=== PATIENT | male | born 1945 | race Caucasian/White ===

== ENCOUNTER 2019-12-04 18:13 | Inpatient (IN) | payer OTHER, SELFPAY ==
[~2019-12-04] VITALS: Ht 172.7 cm; Wt 95.3 kg
--- NOTE | 2019-12-04 18:13 | NUR ---
[facility] ER BED 07
[2019-12-04] MEDS ORDERED: NACL 0.9% 1,000 ML IV ONE ×2 (18:19→21:15)
[2019-12-04 18:35] VITALS: BP 87/56
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
[2019-12-04] MEDS ORDERED: cefTRIAXone 1,000 MG VIAL ONE (18:41)
[2019-12-04 19:23] LABS: BASOPHILS % (AUTO) 0.6 % (0.0-2.0); EOSINOPHILS # (AUTO) 0.1 K/uL (0-0.4); EOSINOPHILS % (AUTO) 1.2 % (0.0-4.0); HEMATOCRIT 37.7 % (36-52); HEMOGLOBIN 12.7 g/dL (12.0-18.0); LYMPHOCYTES # (AUTO) 0.6 K/uL (2.0-11.5); LYMPHOCYTES % (AUTO) 8.1 % (20.5-51.1); MEAN CORPUSCULAR HEMOGLOBIN 32 pg (27-31); MEAN CORPUSCULAR HGB CONC 34 g/dL (33-37); MEAN CORPUSCULAR VOLUME 95.6 fL (80-94); MONOCYTES # (AUTO) 0.8 K/uL (0.8-1.0); MONOCYTES % (AUTO) 11.6 % (1.7-9.3); NEUTROPHILS # (AUTO) 5.7 K/uL (1.8-7.7); NEUTROPHILS % (AUTO) 78.5 % (42.2-75.2); PLATELET COUNT (AUTO) 189 K/uL (140-450); RED BLOOD CELL COUNT(AUTO) 3.95 MIL/uL (4.20-6.10); RED CELL DISTRIBUTION WIDTH 13.9 % (11.6-13.7); WHITE BLOOD COUNT (AUTO) 7.3 K/uL (4.8-10.8)
--- NOTE | 2019-12-04 19:41 | NUR ---
Pt report received from JONAH Roldan. Transfer of care at this time.
[2019-12-04 19:44] LABS: ALBUMIN 3.2 g/dL (3.4-5.0); ANION GAP 14.3 (8-16); ASPARTATE AMINOTRANSFERASE 85 U/L (15-37); CARBON DIOXIDE 27.5 mmol/L (21-32); CHLORIDE 104 mmol/L (98-107); CREATININE 1.6 mg/dL (0.6-1.3); GLUCOSE 117 mg/dL (74-106); POTASSIUM 3.8 mmol/L (3.5-5.1); SODIUM SERUM 142 mmol/L (136-145); TOTAL BILIRUBIN 0.3 mg/dL (0.0-1.0); UREA NITROGEN, BLOOD 24 mg/dL (7-18)
--- NOTE | 2019-12-04 20:36 | NUR ---
PT RESTING IN BED QUIETLY, VSS, BP HAS INCREASED TO 135/63. R/R EQUAL, AND UNLABORED. PT STATES HE CANNOT GIVE URINE AT THIS TIME, AND IS REFUSING A STRAIGHT CATH. SIDE RAIL X2, BED IN LOW POSITION WILL CONTINUE TO MONITOR.
--- NOTE | 2019-12-04 21:15 | NUR ---
1L NS @ 50ML/HR STARTED PER ORDERING PROVIDER DR. LEMUS
[2019-12-04] MEDS ORDERED: DIVA125E1 PO (23:46)
[2019-12-04] MEDS ORDERED: COG1 PO (23:46)
[2019-12-04] MEDS ORDERED: AMLO5TAB PO (23:46)
[2019-12-04] MEDS ORDERED: RISP0.5T3 PO (23:46)
--- NOTE | 2019-12-04 23:50 | NUR ---
PT REMOVED IV'S FROM RAC, AND LEFT HAND. "I DON'T NEED THEM, WHY ARE YOU HURTING ME, I'M READY TO GO BACK TO MY ALF."
--- NOTE | 2019-12-05 00:19 | NUR ---
20G RIGHT HAND IV PLACED BY JONAH HORN. IVF RESTARTED AT NS 50ML/HR.
--- NOTE | 2019-12-05 00:20 | NUR ---
PT GIVEN A ANUJ ALEXANDER PER PT REQUEST.
--- NOTE | 2019-12-05 00:30 | NUR ---
PT WAS ASKED AGAIN FOR URINE, PT REFUSED STATING "STOP HARRASSING ME, I'M NOT GIVING IT." PT CONTINUES TO REFUSE STRAIGHT CATH REQUEST FOR URINE. ERMD MADE AWARE.
--- NOTE | 2019-12-05 01:24 | NUR ---
PT RESTING IN BED QUIETLY, VSS. R/R EQUAL, AND UNLABORED. PT STATES HE CANNOT GIVE URINE AT THIS TIME, AND IS REFUSING A STRAIGHT CATH. SIDE RAIL X2, BED IN LOW POSITION WILL CONTINUE TO MONITOR.
--- NOTE | 2019-12-05 02:46 | NUR ---
PT APPEARS TO BE SLEEPING IN BED. VSS, R/R EQUAL, AND UNLABORED. SIDE RAIL X2, BED IN LOW POSITION WILL CONTINUE TO MONITOR.
--- NOTE | 2019-12-05 04:25 | NUR ---
PT RESTING IN BED QUIETLY, VSS. R/R EQUAL, AND UNLABORED. PT STATES HE NEEDS THE URINAL TO URINATE. VSS, SIDE RAIL X2, BED IN LOW POSITION WILL CONTINUE TO MONITOR.
--- NOTE | 2019-12-05 04:32 | NUR ---
PT STATES HE'S UNABLE TO URINATE AT THIS TIME, WILL TRY AGAIN LATER.
--- NOTE | 2019-12-05 05:43 | NUR ---
PT APPEARS TO BE SLEEPING IN BED. VSS, R/R EQUAL, AND UNLABORED. SIDE RAIL X2, BED IN LOW POSITION WILL CONTINUE TO MONITOR.
[2019-12-05] MEDS ORDERED: ACETAMINOPHEN 325 MG TAB PO PRN (06:55)
[2019-12-05] MEDS ORDERED: guaiFENesin DM 200/20 MG-10 ML 10 ML UDC PO PRN (06:55)
[2019-12-05] MEDS ORDERED: ONDANSETRON 4 MG/2 ML VIAL IM/IVP PRN (06:55)
[2019-12-05] MEDS ORDERED: DEXT 5% /NACL 0.9% 1,000 ML IV SCH (06:55)
[2019-12-05] MEDS ORDERED: DOCUSATE SODIUM 100 MG GELCAP PO PRN (06:55)
[2019-12-05] MEDS ORDERED: POTASSIUM CHLORIDE 40 MEQ, LIDOCAINE MPF 1% 25 MG in NACL 0.9% 250 ML IV PRN (06:55)
[2019-12-05] MEDS ORDERED: ZOLPIDEM 5 MG TAB PO PRN (06:55)
--- NOTE | 2019-12-05 07:00 | NUR ---
PT GAVE URINE. PLACED INTO APPROPRIATE SPECIMEN CONTAINER AND GIVEN TO LAB
--- NOTE | 2019-12-05 07:11 | NUR ---
Pt report given to JONAH DIAMOND. Transfer of care at this time.
--- NOTE | 2019-12-05 07:15 | NUR ---
pt alert to self, birthday, and event cant recall date/time
[2019-12-05 07:22] LABS: BASOPHILS % (AUTO) 0.4 % (0.0-2.0); EOSINOPHILS % (AUTO) 0.8 % (0.0-4.0); HEMATOCRIT 33.3 % (36-52); HEMOGLOBIN 11.4 g/dL (12.0-18.0); LYMPHOCYTES # (AUTO) 1.2 K/uL (2.0-11.5); LYMPHOCYTES % (AUTO) 22.6 % (20.5-51.1); MEAN CORPUSCULAR HEMOGLOBIN 32 pg (27-31); MEAN CORPUSCULAR HGB CONC 34 g/dL (33-37); MEAN CORPUSCULAR VOLUME 95.1 fL (80-94); MONOCYTES % (AUTO) 19.9 % (1.7-9.3); NEUTROPHILS % (AUTO) 56.3 % (42.2-75.2); PLATELET COUNT (AUTO) 165 K/uL (140-450); RED CELL DISTRIBUTION WIDTH 13.6 % (11.6-13.7); WHITE BLOOD COUNT (AUTO) 5.3 K/uL (4.8-10.8)
[2019-12-05 07:30] LABS: BILIRUBIN,URINE NEGATIVE (NEGATIVE); BLOOD, URINE NEGATIVE (NEGATIVE); COLOR,URINE YELLOW (YELLOW); LEUKOCYTE ESTERASE ,URINE NEGATIVE (NEGATIVE); NITRITE, URINE NEGATIVE (NEGATIVE); UGLUCOSE NEGATIVE (NEGATIVE)
--- NOTE | 2019-12-05 07:41 | NUR ---
covid swab collected
[2019-12-05 07:45] LABS: APPEARANCE,URINE CLEAR (CLEAR)
[2019-12-05 08:09] LABS: ALBUMIN 2.7 g/dL (3.4-5.0); AMYLASE 42 U/L (25-115); ANION GAP 12.7 (8-16); ASPARTATE AMINOTRANSFERASE 61 U/L (15-37); CHLORIDE 107 mmol/L (98-107); CHOL/HDL RATIO 4.2 (1-4.5); CREATININE 1.3 mg/dL (0.6-1.3); FREE T4 (FREE THYROXINE) 1.07 ng/dL (0.76-1.46); GLUCOSE 97 mg/dL (74-106); HDL CHOLESTEROL 43 mg/dL (40-60); LDL (CALC) 117 mg/dL (60-100); LIPASE 146 U/L (73-393); MAGNESIUM 1.6 mg/dL (1.8-2.4); POTASSIUM 3.7 mmol/L (3.5-5.1); SODIUM SERUM 142 mmol/L (136-145); THYROID STIMULATING HORMONE 2.81 uIU/mL (0.34-3.74); TOTAL BILIRUBIN 0.2 mg/dL (0.0-1.0); TRIGLYCERIDES 98 mg/dL (30-150); UREA NITROGEN, BLOOD 25 mg/dL (7-18)
[2019-12-05 08:17] LABS: PROTHROMBIN TIME 10.3 secs (10.8-13.4)
--- NOTE | 2019-12-05 08:33 | NUR ---
pts bs 98, pt eating breakfeast in bed-cardiac diet
[2019-12-05] MEDS: DIVALPROEX SPRINKLES 125 MG CAPDR PO SCH ×2 (08:46→20:55)
[2019-12-05] MEDS: NACL 0.9% 1,000 ML IV SCH ×2 (08:46→17:06)
--- NOTE | 2019-12-05 08:50 | NUR ---
depakote administerd. pt tolerated well. nacl infusing into pts r hand peripheral iv.
[2019-12-05 09:10] VITALS: BP 130/81
--- NOTE | 2019-12-05 09:10 | NUR ---
RECEIVED PATIENT FROM ED NURSE FOR ADMISSION AND CONTINUITY OF CARE. PATIENT IS AWAKE, SLOVENIAN SPEAKING. RESPIRATIONS EVEN AND UNLABORED, ROOM AIR. VISIBLE CHEST RISE AND FALL NOTED. ON TELE MONITORING. ABDOMEN SOFT AND NONTENDER. ON CARDIAC DIET. CUP OF COFFEE ON HAND. SKIN WARM, DRY, AND INTACT. IV IN THE RIGHT HAND G20, RUNNING NS AT 115 ML/HR. IVF INFUSING WELL. PATIENT WAS ABLE TO TRANSFER SELF FROM RNEY TO THE BED. HAS DIAPER ON.USES URINAL PER ED NURSE. FALL PRECAUTION IN PLACE. BED IN LOW POSITION. ORIENTED TO THE ROOM AND CALL LIGHT. TV IS ON. WILL CONTINUE TO MONITOR.
--- NOTE | 2019-12-05 09:10 | NUR ---
Patient will be admitted to care of dr cooper. Admited to tele. Will go to room 119a. Belongings list completed. Report to princess raygoza.
--- NOTE | 2019-12-05 09:10 | NUR ---
RECEIVED PT FROM ER NURSE. PT A/OX3. ADM 12/04/19 FOR HYPOTENSIVE EPISODE. RESPIRATIONS EVEN AND UNLABORED. ON ROOM AIR. 20G IV ON R HAND WITH NS @115ML/HR. SKIN CLEAN, DRY AND INTACT. BP 130/60. HR 80. RR 18. SAO2 98%. TEMP 98.2. MRSA SWAB COMPLETED. SAFETY PRECAUTIONS IN PLACE. BED IN LOW POSITION, CALL LIGHT IN REACH. WILL CONTINUE TO MONITOR.
[2019-12-05] MEDS ORDERED: MECLIZINE 25 MG TAB PO PRN (09:20)
--- NOTE | 2019-12-05 09:58 | NUR ---
PHYSICAL THERAPIST AT BEDSIDE. Addendum: 12/05/19 at 1013 by Princess Trini Ragland RN WALKED PATIENT TO THE BATHROOM WITH A WALKER. UNSTEADY GAIT. HAD ON BM.
--- NOTE | 2019-12-05 10:03 | NUR ---
CELESTINO FROM LAB CALLED. SHE STATED THAT PATIENT REFUSED BLOOD TO BE DRAWN. PATIENT STATED " NO MORE BLOOD, NO MORE BLOOD". WILL NOTIFY DR. MELISSA.
[2019-12-05] MEDS: MAGNESIUM OXIDE 400 MG TAB PO SCH (10:12)
--- NOTE | 2019-12-05 11:05 | NUR ---
PATIENT IS RESTING IN BED WATCHING TV. O2SAT 97%, HR 84. BED IN LOW POSITION. CALL LIGHT IS WITHIN REACH. FALL AND DROPLET PRECAUTIONS ARE BEING FOLLOWED BY STAFF. WILL CONTINUE TO MONITOR.
--- NOTE | 2019-12-05 11:11 | NUR ---
INFORMED DR. MELISSA THAT PATIENT HAS HX OF DM BUT NO ACCUCHECKS OR SLIDING SCALE. HE STATED HE WILL PUT ORDERS.
--- NOTE | 2019-12-05 11:43 | NUR ---
PATIENT HAS BEEN SCREENED AND CATEGORIZED MODERATE NUTRITION RISK. PATIENT WILL BE SEEN WITHIN 3-5 DAYS OF ADMISSION. 12/07/19 12/09/[address]
[2019-12-05] MEDS ORDERED: INSULIN LISPRO SLIDING SCALE 100 UNITS/ML VIAL SUBQ PRN (11:55)
[2019-12-05] MEDS ORDERED: DEXTROSE 50% 50 ML SYR IVP PRN (11:55)
[2019-12-05 12:00] VITALS: BP 117/59
--- NOTE | 2019-12-05 12:14 | NUR ---
GIVEN MAG-OX PO FOR MG OF 1.6. PT TOLERATED WELL. NO ACUTE DISTRESS NOTED. WILL CONTINUE TO MONITOR Addendum: 12/05/19 at 1216 by Herber Banerjee RN GIVEN AT 1012
--- NOTE | 2019-12-05 13:13 | NUR ---
PATIENT IS EATING LUNCH AT THIS TIME. NO S/S OF DISTRESS NOTED. BED IN LOW POSITION. CALL LIGHT IS WITHIN REACH. WILL CONTINUE TO MONITOR.
--- NOTE | 2019-12-05 14:34 | NUR ---
MADE ROUNDS. PT SITTING IN BED, WATCHING TV. NO ACUTE DISTRESS NOTED. WILL CONTINUE TO MONITOR.
--- NOTE | 2019-12-05 14:40 | NUR ---
PT TAKEN TO CT.
--- NOTE | 2019-12-05 14:55 | NUR ---
PT ARRIVED BACK TO UNIT
--- NOTE | 2019-12-05 15:49 | NUR ---
TURKEY SANDWICH GIVEN PER PATIENT'S REQUEST. NO S/S OF DISTRESS NOTED. O2SAT 96%, HR 81. DENIES SOB, AND PAIN
[2019-12-05] MEDS: BLOOD GLUCOSE MONITORING 1 DEV DEV FS SCH ×2 (15:59→21:00)
[2019-12-05 16:12] VITALS: BP 125/59
--- NOTE | 2019-12-05 17:08 | NUR ---
MADE ROUNDS. PT SITTING IN BED WATCHING TV. NO ACUTE DISTRESS NOTED.
--- NOTE | 2019-12-05 18:20 | NUR ---
HUNG NEW IV BAG OF NS.
--- NOTE | 2019-12-05 19:10 | NUR ---
ENDORSED PT TO NIGHT RN FOR CONTINUITY OF CARE. PT IN STABLE CONDITION.
--- NOTE | 2019-12-05 19:23 | NUR ---
RECEIVED REPORT FROM AM NURSE. PATIENT IS IN STABLE CONDITION, ON RA, A/OX 4. SKIN WARM, DRY, INTACT. IV SITE NOTED, PATENT, INTACT, AND ASYMPTOMATIC. PATIENT IS ABLE TO MAKE NEEDS KNOWN. ORIENTED PATIENT TO STAFF AND CALL LIGHT. ALL STAFF TO OBSERVE ISOLATION PRECAUTION. SAFETY PRECAUTIONS IN PLACE. WILL CONTINUE TO MONITOR.
[2019-12-05] MEDS: BENZTROPINE 1 MG TAB PO SCH (20:55)
[2019-12-05] MEDS: risperiDONE 1 MG TAB PO SCH (20:56)
--- NOTE | 2019-12-05 21:16 | NUR ---
ADMINISTERED SCHEDULED MEDICATION. PATIENT REFUSED FINGERSTICK BLOOD SUGAR CHECK. EDUCATION PROVIDED. PER REFLOW OPERATOR, PATIENT REFUSED 1999 VITAL SIGNS CHECK. PATIENT IS IN STABLE CONDITION. WILL CONTINUE TO MONITOR.
--- NOTE | 2019-12-05 23:01 | NUR ---
PATIENT IS SLEEPING IN BED. VISIBLE CHEST RISE NOTED. WILL CONTINUE TO MONITOR.
[2019-12-06] VITALS: BP 119/75
--- NOTE | 2019-12-06 01:37 | NUR ---
PATIENT IS SLEEPING. VISIBLE CHEST RISE NOTED. SAFETY PRECAUTIONS IN PLACE. WILL CONTINUE TO MONITOR.
[2019-12-06] MEDS: NACL 0.9% 1,000 ML IV SCH ×3 (01:59→19:23)
--- NOTE | 2019-12-06 03:15 | NUR ---
PATIENT IS SLEEPING. VISIBLE CHEST RISE NOTED. WILL CONTINUE TO MONITOR.
[2019-12-06 04:00] VITALS: BP 137/74
--- NOTE | 2019-12-06 05:04 | NUR ---
SERVICE TRAINER AT BEDSIDE HELPING WITH CHANGING THE PATIENT. PATIENT IS IN STABLE CONDITION. WILL CONTINUE TO MONITOR.
[2019-12-06] MEDS: BLOOD GLUCOSE MONITORING 1 DEV DEV FS SCH ×4 (07:16→20:08)
--- NOTE | 2019-12-06 07:16 | NUR ---
PATIENT REFUSED FINGERSTICK BLOOD SUGAR CHECK. EDUCATION GIVEN. ENDORSED CARE TO AM NURSE.
--- NOTE | 2019-12-06 07:20 | NUR ---
RECEIVED REPORT FROM PM RN. C/O: HYPOTENSION, ALOC. DX: SEVERE DEHYDRATION, HYPOTENSION, MILAGROS. R/O COVID19. HX: DM, HERB, SCHIZOPHRENIA, MOOD DISORDER, PARKINSON. NSR. IV: RT HAND 20G NS 115MLS. CARDIAC DIET. SKIN IS INTACT. PT REFUSED AM GLUCOSE CHECKS, ACCORDING TO PM RN. PT USES A URINAL. PLAN: FREQUENT ROUNDS, NOTIFY MD ON REFUSALS.
[2019-12-06 08:00] VITALS: BP 128/67
[2019-12-06 08:07] LABS: T4 (THYROXINE) 7.4 ug/dL (4.5-12.0)
--- NOTE | 2019-12-06 08:45 | NUR ---
PASSED PTS MEDICATIONS. PT HAD 6/10 BACK PAIN. PT WAS MEDICATED. HELPED PT TO RESTROOM. PT HAD BM. RETURNED PT TO BED. CHANGED LINENS. IV IS PATENT. PT RESTING IN BED AWAKE. WILL CONTINUE TO MONITOR
[2019-12-06] MEDS: DIVALPROEX SPRINKLES 125 MG CAPDR PO SCH ×2 (08:58→20:09)
[2019-12-06] MEDS: HYDROcodone/APAP 7.5/325 MG 1 TAB PO PRN ×2 (08:58→16:09)
[2019-12-06] MEDS: MAGNESIUM OXIDE 400 MG TAB PO SCH ×2 (08:58→09:00)
--- NOTE | 2019-12-06 10:44 | NUR ---
DC PLANN[age] YRS OLD MALE PATIENT WAS ADMITTED FROM HOME WITH A DX OF HYPOTENSIVE EPISODE, SEVER DHN AND MILAGROS . CXR SHOWED INCOMPLETE EXPANDED LUNGS WITH BIBASILAR ATELECTASIS. CT HEAD SHOWED NO INTRACRANIAL HEMORRHAGE. ADMINISTERED IVF FOR DEHYDRATION. COVID TEST IS POSITIVE. STARTED RAMDISIVIR IV DECADRON . CONSULTED WITH JL AND [facility]. DC PLAN TO GO HOME WHEN STABLE CM TO FOLLOW Addendum: 12/09/19 at 1212 by Radha Pinto CM REACHED OUT TO SUNITHA FROM [facility], SHE WAS ABLE TO PROVIDE ME WITH THE TELEPHONE NUMBER FOR [facility] [phone]. [id number] [place], [place]. REACHED OUT AND SPOKE TO ASHANTI TO VERIFY THIS PATIENT IS FROM THEM. Addendum: 12/09/19 at 1251 by Radha Pinto CM SPOKE TO ASHANTI FROM [facility] TO NOTIFY HER THAT PATIENT IS COVID POSITIVE SHE STATED THAT SHE WILL HAVE TO CALL ME BACK. THEY CAN NOT PROVIDE TRANSPORTATION WILL SET UP TRANSPORTATION WITH [facility] Addendum: 12/09/19 at 1308 by Radha Pinto CM ASHANTI FROM [facility] STATED THAT PATIENT CAN RETURN BUT SHE WANTED TO SPEAK TO THE PATIENTS NURSE. TRANSFERRED CALL TO JONAH STONE. FAXED TRANSPORTATION REQUEST TO [facility] [phone]. Addendum: 12/09/19 at 1416 by Radha Pinto CM TRANSPORTATION HAS BEEN SET UP WITH [facility] WITH OXYGEN 2L. NOTIFIED JOANH STONE THAT TRANSPORTATION WILL BE HERE AT 4:00 PM Addendum: 12/09/19 at 1422 by Radha Kaisereda CM VERIFIED WITH ARMANDO AT [facility] TRANSPORTATION THAT TRANSPORTATION HAS BEEN SET UP WITH 02 Addendum: 12/09/19 at 1521 by Radha Mayeda CM RECEIVED A CALL BACK FROM [facility] IN ADMIN [phone] SHE ASKED US TO HOLD OFF ON THE DISCHARGE BECAUSE THEY CAN NOT TAKE THE PATIENT BACK AT THIS TIME SINCE THE PATIENT IS COVID POSITIVE. Addendum: 12/09/19 at 1540 by Radha Mayeda CM CONTACTED [facility] TO CANCEL TRANSPORTATION. NOTIFIED JONAH STONE Addendum: 12/09/19 at 1622 by Radha Pinto CM FAXED PATIENTS CLINICALS TO [facility] [phone] FAX [phone]. FOLLOWED UP WITH SONNY SHE IS ABLE TO ACCEPT THIS PATIENT. ROOM [address] LIN[address] DENNIS FROM [facility] IS SETTING UP TRANSPORTATION WITH [facility] AND WILL CONTACT ME WITH JAMES. WILL PROVIDE HER WITH THE FLOORS NUMBER IN CASE I AM OFF. Addendum: 12/09/19 at 1623 by Radha Pinto CM PERSONAL FITNESS TRAINER TIME FOR PATIENT 7:00 PM. NOTIFIED JONAH STONE
--- NOTE | 2019-12-06 11:35 | NUR ---
PTS BLOOD SUGAR 123. NO INULIN NEEDED. PTS VITALS ARE WITHIN NORMAL RANGE. NO COMPLAINTS OF PAIN.
[2019-12-06 12:00] VITALS: BP 104/55
--- NOTE | 2019-12-06 13:00 | NUR ---
PT SITTING UP IN BED EATING LUNCH. NO COMPLAINTS OF PAIN. NO SIGNS OF DISTRESS.
--- NOTE | 2019-12-06 13:46 | NUR ---
COVERING FOR PRIMARY RN. PATIENT AWAKE ON HIS CELL PHONE
--- NOTE | 2019-12-06 15:03 | NUR ---
LAB CALLED, PT IS COVID 19 +.
--- NOTE | 2019-12-06 15:25 | NUR ---
PT TESTED POSITIVE FOR COVID19, PHYSICIAN NOTIFIED. WAITING FOR FURTHER ORDERS.
--- NOTE | 2019-12-06 15:48 | NUR ---
PLACED CONSULT FOR DR. ALEX AND DR. SNYDER PER DR. MELISSA.
[2019-12-06 16:00] VITALS: BP 126/67
--- NOTE | 2019-12-06 16:16 | NUR ---
BLOOD SUGAR 95. PT WAS IN PAIN. 10/01. PAIN MED GIVEN.
--- NOTE | 2019-12-06 19:20 | NUR ---
TRANSFER OF CARE TO PM RN. PT IS STABLE. NO SIGNS OF DISTRESS. VS STABLE.
--- NOTE | 2019-12-06 19:30 | NUR ---
RECEIVED REPORT FROM RN GERRY AT BEDSIDE FOR CONTINUITY OF CARE, PT IN STABLE CONDITION.
[2019-12-06 20:00] VITALS: BP 132/86
[2019-12-06] MEDS: BENZTROPINE 1 MG TAB PO SCH (20:09)
[2019-12-06] MEDS: risperiDONE 1 MG TAB PO SCH (20:09)
--- NOTE | 2019-12-06 20:25 | NUR ---
PT IS AOX3 ALERT AND AWAKE WITH NO C/O VOICED. PT FINGERSTICK IS 100, NO HUMALOG COVERAGE NEEDED. PT GIVEN ORDERED COGENTIN, DEPAKOTE SPRINKLES AND RISPERDAL AT BEDSIDE ORDERED. EDUCATION REGARDING MEDICATION PURPOSES AND SIDE EFFECTS PROVIDED AT BEDSIDE. PT VERBALIZED UNDERSTANDING. PT SAID HE WANTED TO GO TO BED. PT PLACED ON 2 LITERS VIA N/C DUE TO 02 DROPPING TO 79% AND GOING BACK TO 90'S THEN DROPPING AGAIN. EDUCATION PROVIDED SUPPLEMENTAL O2 PROVIDED AT BEDSIDE. PULSE OX WAS LOOSE ON INDEX FINGER. ALL REQUESTS ATTENDED BY STAFF. ALL DROPLET AND FALLS PRECAUTIONS IN PLACE.
--- NOTE | 2019-12-06 22:45 | NUR ---
PT IN BED RESTING WITH EYES CLOSED BUT AROUSABLE TO NAME . PT HAS 2 LITERS 02 VIA N/C 02 STATING AT 95%. NO S/S OF PAIN OR DISTRESS NOTED. IV SITE INTACT AND RUNNING NORMAL SALINE AT 115 ORDERED VIA R HAND 20 GUAGE. ALL DROPLET AND FALLS PRECAUTIONS IN PLACE.
[2019-12-07] VITALS: BP 134/83
--- NOTE | 2019-12-07 00:30 | NUR ---
PT IN BED WITH EYES CLOSED, BUT AROUSABLE TO NAME AND LIGHT TOUCH. PT HAS 2 LITERS VIA N/C. PT HAS R HAND 20 GUAGE RUNNING NORMAL SALINE AT 115MLS/HR . NEW BAG OF NORMAL SALINE REPLACED.IV SITE ASYMPTOMATIC AND INTACT. V/S FOLLOWS: T 98.1 P 84 R 18 B/P 134/83 02 97% WITH 2 LITERS VIA N/C. ALL ORDERED PRECAUTIONS IN PLACE.
[2019-12-07] MEDS: BLOOD GLUCOSE MONITORING 1 DEV DEV FS SCH ×5 (01:13→21:49)
[2019-12-07 04:00] VITALS: BP 127/70
[2019-12-07] MEDS: NACL 0.9% 1,000 ML IV SCH ×3 (04:05→21:29)
--- NOTE | 2019-12-07 04:30 | NUR ---
PT IN BED EYES CLOSED, BUT IS AROUSABLE TO NAME AND LIGHT TOUCH. HE IS AOX3 V/S FOLLOWS: T 97.8 P 88 R 20 B/P 121/70 02 96% ON 2 LITERS VIA N/C. ALL FALLS AND CONTACT PRECAUTIONS IN PLACE.
--- NOTE | 2019-12-07 06:00 | NUR ---
FINGERSTICK IS 86, NO HUMALOG COVERAGE NEEDED. PT GIVEN EXTRA JUICE TO HELP INCREASE BLOOD SUGAR. IV SITE INTACT AND RUNNING FLUIDS ORDERED.
--- NOTE | 2019-12-07 07:14 | NUR ---
POC TO BE ENDORSED TO BE ENDORSED TO AM SHIFT.
--- NOTE | 2019-12-07 07:30 | NUR ---
RECEIVED PT ON BED AAOX2 WITH PERIODS OF CONFUSION, REORIENTATION PROVIDED. NO SOB NOTED. NO C/O PAIN AT THIS TIME. IV TO RT HAND PATENT AND INTACT. CHEST DIMINISHED AIR ENTRY TO THE BASES, PT ON 2LPM OXYGEN VIA NASAL CANNULA WITH SATS AT 91%. ABDOMEN SOFT, BOWEL SOUNDS PRESENT. NO EDEMA NOTED. INSTRUCTED PT TO CALL FOR ASSISTANCE, CALL LIGHT WITHIN REACH, PT VERBALIZED PARTIAL UNDERSTANDING.
[2019-12-07 08:00] VITALS: BP 137/84
[2019-12-07] MEDS: MAGNESIUM OXIDE 400 MG TAB PO SCH ×2 (09:00→09:43)
[2019-12-07] MEDS: DIVALPROEX SPRINKLES 125 MG CAPDR PO SCH ×2 (09:44→21:50)
--- NOTE | 2019-12-07 11:00 | NUR ---
PT INCONTINENT OF URINE, PERINEAL CARE DONE.
[2019-12-07 12:00] VITALS: BP 124/73
[2019-12-07] MEDS ORDERED: AZITHROMYCIN 500 MG in DEXTROSE 5% 250 ML IV SCH (15:30)
[2019-12-07 15:47] LABS: BASOPHILS % (AUTO) 0.6 % (0.0-2.0); EOSINOPHILS % (AUTO) 0.2 % (0.0-4.0); HEMATOCRIT 32.3 % (36-52); HEMOGLOBIN 10.8 g/dL (12.0-18.0); LYMPHOCYTES # (AUTO) 0.9 K/uL (2.0-11.5); LYMPHOCYTES % (AUTO) 22.3 % (20.5-51.1); MEAN CORPUSCULAR HEMOGLOBIN 32 pg (27-31); MEAN CORPUSCULAR HGB CONC 33 g/dL (33-37); MEAN CORPUSCULAR VOLUME 94.4 fL (80-94); MONOCYTES # (AUTO) 0.5 K/uL (0.8-1.0); NEUTROPHILS # (AUTO) 2.6 K/uL (1.8-7.7); NEUTROPHILS % (AUTO) 63.9 % (42.2-75.2); PLATELET COUNT (AUTO) 143 K/uL (140-450); RED BLOOD CELL COUNT(AUTO) 3.42 MIL/uL (4.20-6.10); RED CELL DISTRIBUTION WIDTH 13.6 % (11.6-13.7); WHITE BLOOD COUNT (AUTO) 4.1 K/uL (4.8-10.8)
[2019-12-07 16:00] VITALS: BP 121/73
[2019-12-07 16:04] LABS: ANION GAP 10.1 (8-16); CARBON DIOXIDE 26.8 mmol/L (21-32); CHLORIDE 103 mmol/L (98-107); CREATININE 1.2 mg/dL (0.6-1.3); GLUCOSE 123 mg/dL (74-106); POTASSIUM 3.9 mmol/L (3.5-5.1); SODIUM SERUM 136 mmol/L (136-145); UREA NITROGEN, BLOOD 13 mg/dL (7-18)
--- NOTE | 2019-12-07 18:00 | NUR ---
DR. ROSAS HERE TO SEE PT.
[2019-12-07] MEDS ORDERED: remdesivir COMMUNICATION ORDER 1 EA MISC MC PRN (18:15)
--- NOTE | 2019-12-07 19:15 | NUR ---
PT RESTING. NO SOB NOTED. NO SIGNS OF PAIN AT THIS TIME. WILL ENDORSE TO NEXT SHIFT NURSE FOR CONTINUITY OF CARE.
[2019-12-07 20:00] VITALS: BP 120/60
--- NOTE | 2019-12-07 21:00 | NUR ---
PT IN BED WITH 2 LITERS RUNNING VIA N/C. IV SITE INTACT AND RUNNING NORMAL SALINE AT 115MLS/HR. V/S FOLLOWS: T 97.2 P 98 R 18 B/P 120/60 02 96% ON ROOM AIR. PT F/S IS 125 NO HUMALOG COVERAGE NEEDED. PT RECEIVED ORDERED MEDS OF COGENTIN, DEPAKOTE SPRINKLES AND RISPERDAL. EDUCATION REGARDING MEDICATION SIDE EFFECTS AND PURPOSES PROVIDED AT BEDSIDE, T VERBALIZED UNDERSTANDING. ALL DROPLET AND FALLS PRECAUTIONS IN PLACE.
[2019-12-07] MEDS: BENZTROPINE 1 MG TAB PO SCH (21:50)
[2019-12-07] MEDS: risperiDONE 1 MG TAB PO SCH (21:51)
--- NOTE | 2019-12-07 22:40 | NUR ---
PT WAS TURNED AND REPOSITIONED IN BED NO C/O VOICED. PT CONTINUES ON 2 LITERS N/C. ALL FALLS AND DROPLET PRECAUTIONS IN PLACE.
[2019-12-08] VITALS: BP 110/61
--- NOTE | 2019-12-08 | NUR ---
PT IN BED HE WAS TURNED AND REPOSITIONED IN BED. FLUID BAG OF SALINE WAS REPLACED AND IS RUNNING ORDERED. V/S FOLLOWS: T 97.6 P 89 R 18 B/P 110/61 02 95% WITH 2 LITERS VIA N/C. ALL ORDERED PRECAUTIONS IN PLACE.
--- NOTE | 2019-12-08 02:00 | NUR ---
PT IN BED SLEEPING N/S RUNNING 115, 02 RUNNING AT 2 LITERS VIA N/C. ALL ORDERED PRECAUTIONS IN PLACE.
[2019-12-08 04:00] VITALS: BP 118/73
--- NOTE | 2019-12-08 04:00 | NUR ---
PT AWAKE, HE WAS TRYING TO GET OUT OF BED. PT WAS ASSISTED AT BEDSIDE, HE WAS CHANGED AND REPOSITIONED AND WENT BACK TO SLEEP,PT DENIES ANY PAIN V/S FOLLOWS: T 98.0 P 92 R 18 B/P 131/69 02 95%. ALL ORDERED FALLS AND CONTACT PRECAUTIONS IN PLACE.
--- NOTE | 2019-12-08 05:07 | NUR ---
PT IN BED ALL REQUESTED NEEDS ATTENDED BY STAFF.02 RUNNING AT 2 LITERS RESPIRATIONS EVEN AND UNLABORED, PT HAS NO C/O OF PAIN OR DISCOMFORT NOTED.
[2019-12-08] MEDS: NACL 0.9% 1,000 ML IV SCH ×3 (06:21→20:08)
--- NOTE | 2019-12-08 07:15 | NUR ---
RECEIVED BEDSIDE REPORT FROM NIGHTSHIFT NURSE. PT RESTING IN BED. ABLE TO MAKE NEEDS KNOWN. RESPIRATIONS EVEN AND UNLABORED WITH NO SOB OR RESPIRATORY DISTRESS. SKIN WARM AND DRY TO TOUCH. IV SITE IN R HAND 22G IS CLEAN, DRY, AND INTACT. SAFETY MEASURES IN PLACE. WILL CONTINUE TO MONITOR
[2019-12-08 08:00] VITALS: BP 143/96
[2019-12-08] MEDS: MAGNESIUM OXIDE 400 MG TAB PO SCH ×2 (09:00→09:17)
[2019-12-08] MEDS: ENOXAPARIN 40 MG/0.4 ML SYR SUBQ SCH (09:11)
[2019-12-08] MEDS: DIVALPROEX SPRINKLES 125 MG CAPDR PO SCH ×2 (09:15→20:08)
--- NOTE | 2019-12-08 09:15 | NUR ---
TRICOT KNITTING MACHINE OPERATOR CALLED AND SAID THAT PT REFUSED AM LABS. AND CHARGE NURSE AWARE. SAFETY MEASURES IN PLACE. WILL CONTINUE TO MONITOR
[2019-12-08] MEDS: ZINC SULF 220 MG CAP PO SCH (09:16)
[2019-12-08] MEDS: ASCORBIC ACID 500 MG TAB PO SCH (09:16)
[2019-12-08] MEDS: DEXAMETHASONE 4 MG/ML VIAL IVP SCH (09:17)
--- NOTE | 2019-12-08 09:30 | NUR ---
ADMINISTERED SCHED MED PRESCRIBED PER MD ORDER. PT TOLERATED WELL. MEDICATION EDUCATION PERFORMED. PT VERBALIZED UNDERSTANDING. SAFETY MEASURES IN PLACE. WILL CONTINUE TO MONITOR
[2019-12-08] MEDS ORDERED: CLINICAL MONITORING MC PRN (10:00)
--- NOTE | 2019-12-08 10:15 | NUR ---
HOURLY ROUNDING. PT TAKEN OFF OXYGEN AND WAS MAINTAINING O2 AT 89-90%. EDUCATED PATIENT ON PURPOSE OF KEEPING IT ON. PT SAID "I DON'T LIKE HAVING IT ON MY FACE." RE-EDUCATED PATIENT AND PLACED HIM BACK ON NASAL CANNULA. SAFETY MEASURES IN PLACE. WILL CONTINUE TO MONITOR
[2019-12-08] MEDS ORDERED: REMDESIVIR (EUA) 200 MG in NACL 0.9% 100 ML IV SCH (11:00)
--- NOTE | 2019-12-08 11:30 | NUR ---
PT BLOOD SUGAR 110. NO INSULIN NEEDED AT THIS TIME. SAFETY MEASURES IN PLACE. WILL CONTINUE TO MONITOR
[2019-12-08] MEDS: BLOOD GLUCOSE MONITORING 1 DEV DEV FS SCH ×3 (11:33→20:07)
[2019-12-08 12:00] VITALS: BP 115/74
--- NOTE | 2019-12-08 12:30 | NUR ---
ADMINISTERED SCHED MED PRESCRIBED PER MD ORDER. PT TOLERATED WELL. MEDICATION EDUCATION PERFORMED. PT VERBALIZED UNDERSTANDING. SAFETY MEASURES IN PLACE. WILL CONTINUE TO MONITOR
--- NOTE | 2019-12-08 14:04 | NUR ---
HOURLY ROUNDING. PT RESTING IN BED. ABLE TO MAKE NEEDS KNOWN. RESPIRATIONS EVEN AND UNLABORED WITH NO SOB OR RESPIRATORY DISTRESS. SKIN WARM AND DRY TO TOUCH. SAFETY MEASURES IN PLACE. WILL CONTINUE TO MONITOR
--- NOTE | 2019-12-08 15:51 | NUR ---
PATIENT TRYING TO GET OUT OF BED. ASKED PATIENT WHERE HES GOING AND HE SAID BACK TO DONN PANCHAL BECAUSE HE DOES NOT LIKE THAT ROOM. REORIENTED PATIENT THAT HE IS IN THE HOSPITAL AND NEEDS TO STAY. PATIENT SAID "OKAY. I WOULD LIKE A ROOT BEER THEN." REPOSITIONED AND CHANGED PATIENT. WILL CONTINUE TO MONITOR
[2019-12-08 16:00] VITALS: BP 154/70
--- NOTE | 2019-12-08 16:15 | NUR ---
EDUCATED PT THAT LAB WAS COMING BY TO DRAW BLOOD AND WHY THAT IS IMPORTANT. PT VERBALIZED UNDERSTANDING AND SAID HE WOULD LET HER DRAW HIS BLOOD. WILL CONTINUE TO MONITOR
[2019-12-08 16:39] LABS: BASOPHILS % (AUTO) 0.4 % (0.0-2.0); HEMATOCRIT 30.7 % (36-52); HEMOGLOBIN 10.4 g/dL (12.0-18.0); LYMPHOCYTES # (AUTO) 0.5 K/uL (2.0-11.5); LYMPHOCYTES % (AUTO) 14.8 % (20.5-51.1); MEAN CORPUSCULAR HEMOGLOBIN 32 pg (27-31); MEAN CORPUSCULAR HGB CONC 34 g/dL (33-37); MEAN CORPUSCULAR VOLUME 94.6 fL (80-94); MONOCYTES # (AUTO) 0.3 K/uL (0.8-1.0); NEUTROPHILS # (AUTO) 2.6 K/uL (1.8-7.7); NEUTROPHILS % (AUTO) 74.8 % (42.2-75.2); PLATELET COUNT (AUTO) 138 K/uL (140-450); RED BLOOD CELL COUNT(AUTO) 3.24 MIL/uL (4.20-6.10); RED CELL DISTRIBUTION WIDTH 13.6 % (11.6-13.7); WHITE BLOOD COUNT (AUTO) 3.5 K/uL (4.8-10.8)
[2019-12-08 16:47] LABS: ANION GAP 14.2 (8-16); CARBON DIOXIDE 24.8 mmol/L (21-32); CHLORIDE 104 mmol/L (98-107); CREATININE 1.2 mg/dL (0.6-1.3); GLUCOSE 130 mg/dL (74-106); SODIUM SERUM 139 mmol/L (136-145); UREA NITROGEN, BLOOD 18 mg/dL (7-18)
--- NOTE | 2019-12-08 17:36 | NUR ---
HEARD BED ALARM AND FOUND PATIENT UP AND OUT OF BED. PT SAT HIMSELF ON CHAIR NEXT TO BED AND REFUSED TO GET UP. PT RIPPED OFF TELE BOX, NASAL CANNULA, AND MASK. PATIENT BECAME COMBATIVE AND ANGRY AND DID NOT WANT TELE BOX PUT ON HIM. EDUCATED PATIENT ON IMPORTANCE OF TELE BOX AND PT AGREED. PT REFUSED TO WEAR NASAL CANNULA AND SURGICAL MASK AND TO GET BACK IN BED. TOLD PATIENT TO CALL NURSE WHEN HE WANTS TO GET UP AND PATIENT AGREED. CHARGE NURSE AND MD AWARE. SAFETY MEASURES IN PLACE. WILL CONTINUE TO MONITOR
[2019-12-08] MEDS ORDERED: LORazepam 2 MG/ML VIAL IM/IVP PRN (17:40)
--- NOTE | 2019-12-08 18:04 | NUR ---
PATIENT DID NOT CALL BEFORE HE GOT OUT OF BED. FOUND PATIENT TRYING TO CLIMB INTO BED. ASSISTED PT INTO BED. ADMINISTERED PRN ATIVAN PRESCRIBED PER MD ORDER. PT TOLERATED WELL. PT REFUSING TO WEAR NASAL CANNULA AND SPO2 SENSOR. WILL CONTINUE TO MONITOR
--- NOTE | 2019-12-08 18:50 | NUR ---
PT LYING IN BED. NO SIGNS OF DISTRESS NOTED. PUT PT BACK ON O2 AND NASAL CANNULA. SAFETY MEASURES IN PLACE. WILL CONTINUE TO MONITOR
--- NOTE | 2019-12-08 19:15 | NUR ---
PT RESTING IN BED. NO SIGNS OF DISTRESS AT THIS TIME. WILL CONTINUE TO MONITOR
--- NOTE | 2019-12-08 19:16 | NUR ---
RECEIVED BEDSIDE REPORT FROM DAY RN. PT IS RESTING IN BED. AAOX2. RESPIRATIONS EVEN AND UNLABORED WITH NO SOB OR RESPIRATORY DISTRESS ON 2L VIA NC SAT WELL 98%. SKIN WARM AND DRY TO TOUCH. SKIN IS INTACT. IV SITE IN R HAND 22G IS CLEAN, DRY, AND INTACT IVF INFUSING PER ORDERS. PT ON DROPLET ISOLATION WITH SIGN ON DOOR. POC DISCUSSED WITH PT SAFETY MEASURES IN PLACE. WILL CONTINUE TO MONITOR
[2019-12-08 20:00] VITALS: BP 105/63
[2019-12-08] MEDS: BENZTROPINE 1 MG TAB PO SCH (20:08)
[2019-12-08] MEDS: risperiDONE 1 MG TAB PO SCH (20:08)
--- NOTE | 2019-12-08 20:08 | NUR ---
VSS. PT IS CALM AND COOPERATIVE. AAOX3. BG 123 NO COVERAGE NEEDED. MADDY MEDICATION GIVEN PER ORDERS. ALL NEEDS MET. CALL LIGHT IS WITHIN REACH.
--- NOTE | 2019-12-08 20:52 | NUR ---
GAVE SANDWICH PER REQUESTING PT SITTING UP EATING. ALL NEEDS MET. CALL LIGHT IS WITHIN REACH. BED ALARM ON.
--- NOTE | 2019-12-08 22:30 | NUR ---
PT ATTEMPTED TO GET OUT OF BED. REORIENTED PT VERBALIZED UNDERSTANDING. PT BACK IN BED IS CALM. ALL NEEDS MET. BED ALARM ON. WILL CONTINUE TO MONITOR.
[2019-12-09] VITALS: BP 102/72
--- NOTE | 2019-12-09 | NUR ---
PT IS LAYING COMFORTABLY IN BED WITH EYES CLOSED. CHEST RISE AND FALL NOTED. BED ALARM ON. ALL SAFETY MEASURES ARE IN PLACE. WILL CONTINUE TO MONITOR.
--- NOTE | 2019-12-09 02:20 | NUR ---
ASSISTED PT WITH URINAL. ASSISTED PT BACK INTO BED. PT IS RESTING COMFORTABLY IN BED. SAFETY MEASURES ARE IN PLACE.
[2019-12-09 04:00] VITALS: BP 132/90
--- NOTE | 2019-12-09 04:00 | NUR ---
VITAL SIGNS ARE WITHIN NORMAL LIMITS. ALL SAFETY MEASURES ARE IN PLACE. BED ALARM ON. CALL LIGHT IS WITHIN REACH. WILL CONTINUE TO MONITOR.
[2019-12-09] MEDS: BLOOD GLUCOSE MONITORING 1 DEV DEV FS SCH ×3 (06:26→16:30)
[2019-12-09] MEDS: NACL 0.9% 1,000 ML IV SCH ×2 (06:29→18:51)
--- NOTE | 2019-12-09 07:20 | NUR ---
GAVE BEDSIDE REPORT TO DAY RN. PT ENDORSED IN STABLE CONDITION.
--- NOTE | 2019-12-09 07:21 | NUR ---
RECEIVED REPORT FROM MANAGER SHAREPOINT NURSE ARNOL FOR CONTINUITY OF CARE. PATIENT IN STABLE CONDITION. RESPIRATIONS EVEN AND UNLABORED, O2 2L VIA NC. IV INTACT AND PATENT. BED IN LOW POSITION. BED ALARM ON. CALL LIGHT WITHIN REACH. WILL CONTINUE TO MONITOR.
[2019-12-09 08:00] VITALS: BP 147/81
[2019-12-09 08:56] LABS: ALBUMIN 2.2 g/dL (3.4-5.0); ANION GAP 11.8 (8-16); ASPARTATE AMINOTRANSFERASE 34 U/L (15-37); CARBON DIOXIDE 24.9 mmol/L (21-32); CHLORIDE 105 mmol/L (98-107); CREATININE 1.1 mg/dL (0.6-1.3); GLUCOSE 92 mg/dL (74-106); POTASSIUM 3.7 mmol/L (3.5-5.1); SODIUM SERUM 138 mmol/L (136-145); TOTAL BILIRUBIN 0.2 mg/dL (0.0-1.0); UREA NITROGEN, BLOOD 20 mg/dL (7-18)
[2019-12-09] MEDS: ENOXAPARIN 40 MG/0.4 ML SYR SUBQ SCH (09:00)
[2019-12-09] MEDS: DEXAMETHASONE 4 MG/ML VIAL IVP SCH (09:35)
[2019-12-09] MEDS: DIVALPROEX SPRINKLES 125 MG CAPDR PO SCH (09:35)
[2019-12-09] MEDS: ASCORBIC ACID 500 MG TAB PO SCH (09:35)
[2019-12-09] MEDS: ZINC SULF 220 MG CAP PO SCH (09:35)
--- NOTE | 2019-12-09 09:37 | NUR ---
GAVE ORDERED DUE MEDICATIONS AT THIS TIME. HELD ENOXAPARIN DUE TO LOW PLATELET COUNT. PATIENT TOLERATED WELL. BED IN LOW POSITION. BED ALARM ON. CALL LIGHT WITHIN REACH. WILL CONTINUE TO MONITOR.
[2019-12-09] MEDS ORDERED: REMDESIVIR (EUA) 100 MG in NACL 0.9% 100 ML IV SCH (11:00)
[2019-12-09 12:00] VITALS: BP 138/82
--- NOTE | 2019-12-09 12:13 | NUR ---
PATIENT SLEEPING AT THIS TIME. RESPIRATIONS EVEN AND UNLABORED. EASY TO AROUSE. BED IN LOW POSITION. BED ALARM ON. CALL LIGHT WITHIN REACH. WILL CONTINUE TO MONITOR.
[2019-12-09] MEDS ORDERED: APIX2.5 PO (12:16)
[2019-12-09] MEDS ORDERED: AZIT250T3 PO (12:16)
[2019-12-09] MEDS ORDERED: DEC4 PO (12:16)
--- NOTE | 2019-12-09 14:45 | NUR ---
PATIENT SLEEPING AT THIS TIME. RESPIRATIONS EVEN AND UNLABORED. BED IN LOW POSITION. BED ALARM ON. CALL LIGHT WITHIN REACH. WILL CONTINUE TO MONITOR.
--- NOTE | 2019-12-09 14:48 | NUR ---
12/09/19 RD INITIAL ASSESSMENT COMPLETED PLEASE REFER TO NUTRITION ASSESSMENT UNDER CARE ACTIVITY FOR ESTIMATED NUTRITIONAL NEEDS. 1. CONTINUE CARDIAC DIET TOLERATED 2. RD TO FOLLOW-UP 3-5 DAYS, MODERATE RISK HERO HAYES RD
[2019-12-09 16:00] VITALS: BP 134/84
--- NOTE | 2019-12-09 16:50 | NUR ---
PATIENT EATING DINNER AT THIS TIME. BED IN LOW POSITION. BED ALARM ON. CALL LIGHT WITHIN REACH. WILL CONTINUE TO MONITOR.
--- NOTE | 2019-12-09 17:55 | NUR ---
GAVE REPORT TO BRET STAFF NURSE AT [facility] FOR CONTINUITY OF CARE. BRET VERBALIZED UNDERSTANDING OF REPORT. ALL QUESTIONS ANSWERED AT THIS TIME.
--- NOTE | 2019-12-09 18:30 | NUR ---
GAVE DISCHARGE INSTRUCTIONS TO PATIENT, PATIENT VERBALIZED UNDERSTANDING OF INSTRUCTIONS. IV REMOVED LUMEN INTACT. ID BAND REMOVED. WORKFORCE MANAGEMENT ANALYST TIME AT 1900.
--- NOTE | 2019-12-09 19:10 | NUR ---
GAVE REPORT TO TRANSPORT TEAM FOR CONTINUITY OF CARE. PATIENT IN STABLE CONDITION. PATIENT PLACED ON GURNEY IN STABLE CONDITION.
--- NOTE | 2019-12-10 15:51 | NUR ---
ECHOCARDIOGRAM PENDING, PT POSITIVE COVID-19
== END 2019-12-09 19:25 | DRG 177 ==
LOC: MED 18:13 → MMU 21:18 → MTU 12-05 07:46
PROVIDERS: ADMIT Family Medicine; ATTEND Family Medicine
PROC: XW033E5 Introduction of Remdesivir Anti-infective into Peripheral Vein, Percutaneous Approach, New Technology Group 5 (ICD-10-PCS; principal; 2019-12-08)
DX: U07.1 COVID-19 (principal); N17.0 Acute kidney failure with tubular necrosis; G93.41 Metabolic encephalopathy; E43 Unspecified severe protein-calorie malnutrition; J12.89 Other viral pneumonia; D64.9 Anemia, unspecified; E86.0 Dehydration; I10 Essential (primary) hypertension; G20 Parkinson's disease; F39 Unspecified mood [affective] disorder; E11.9 Type 2 diabetes mellitus without complications; F17.210 Nicotine dependence, cigarettes, uncomplicated; R74.0 Nonspecific elevation of levels of transaminase and lactic acid dehydrogenase [LDH]; I95.9 Hypotension, unspecified; F43.9 Reaction to severe stress, unspecified; Z68.31 Body mass index [BMI] 31.0-31.9, adult
CPT/HCPCS: 36415; 70450; 71045; 80048; 80053; 81003; 82150; 82948; 83036; 83605; 83690; 83735; 83880; 84100; 84436; 84439; 84443; 84479; 84484; 85025; 85379; 85610; 85730; 86886; 86900; 86901; 87040; 87081; 87086; 93005; 93880; 96365; 97110; 97112; 97116; 97161-GP; 97530; 99285; J0456; J0696; J1100; J1650; J2060; J7030; J7042; J7060; Q0092; U0003-CS

== ENCOUNTER 2021-06-05 20:13 | Observation (INO) | payer OTHER, MEDICAID, SELFPAY ==
[~2021-06-05] VITALS: Ht 182.9 cm; Wt 103.4 kg
[~2021-06-05 20:13] MED LIST: AMLO5TAB PO; APIX2.5 PO; AZIT250T3 PO; COG1 PO; DEC4 PO; DIVA125E1 PO; RISP0.5T3 PO
--- NOTE | 2021-06-05 20:13 | NUR ---
PT BROUGHT TO BED 4 VIA [facility]
[2021-06-05 20:15] VITALS: BP 108/66
[2021-06-05] MEDS ORDERED: NACL 0.9% 1,000 ML IV ONE (20:30)
[2021-06-05] MEDS ORDERED: ASPI-1749 PO (20:36)
[2021-06-05] MEDS ORDERED: ATOR20TA PO (20:36)
[2021-06-05 21:15] LABS: BASOPHILS # (AUTO) 0.1 K/uL (0.00-0.22); BASOPHILS % (AUTO) 0.9 % (0.0-2.0); EOSINOPHILS # (AUTO) 0.1 K/uL (0-0.4); EOSINOPHILS % (AUTO) 1.4 % (0.0-4.0); HEMATOCRIT 36.9 % (36-52); HEMOGLOBIN 12.4 g/dL (12.0-18.0); LYMPHOCYTES # (AUTO) 1.8 K/uL (2.0-11.5); LYMPHOCYTES % (AUTO) 23.9 % (20.5-51.1); MEAN CORPUSCULAR HEMOGLOBIN 32 pg (27-31); MEAN CORPUSCULAR HGB CONC 34 g/dL (33-37); MEAN CORPUSCULAR VOLUME 95.2 fL (80-94); MONOCYTES # (AUTO) 0.8 K/uL (0.8-1.0); MONOCYTES % (AUTO) 10.5 % (1.7-9.3); NEUTROPHILS # (AUTO) 4.8 K/uL (1.8-7.7); NEUTROPHILS % (AUTO) 63.3 % (42.2-75.2); PLATELET COUNT (AUTO) 161 K/uL (140-450); RED BLOOD CELL COUNT(AUTO) 3.88 MIL/uL (4.20-6.10); RED CELL DISTRIBUTION WIDTH 14.9 % (11.6-13.7); WHITE BLOOD COUNT (AUTO) 7.6 K/uL (4.8-10.8)
[2021-06-05 21:36] LABS: ANION GAP 13.4 (8-16); ASPARTATE AMINOTRANSFERASE 21 U/L (15-37); CARBON DIOXIDE 27.6 mmol/L (21-32); CHLORIDE 108 mmol/L (98-107); CREATININE 1.5 mg/dL (0.6-1.3); GLUCOSE 106 mg/dL (74-106); SODIUM SERUM 145 mmol/L (136-145); TOTAL BILIRUBIN 0.3 mg/dL (0.0-1.0); UREA NITROGEN, BLOOD 27 mg/dL (7-18)
--- NOTE | 2021-06-05 21:40 | NUR ---
PATIENT ALERT FEELING BETTER AT THIS TIME VITALS SIGNS IN NORMAL LIMITS //DiCaprio RN
[2021-06-05] MEDS ORDERED: cefTRIAXone 2,000 MG in DEXTROSE 5% 100 ML IV ONE (22:40)
[2021-06-06] MEDS ORDERED: cefTRIAXone 1,000 MG VIAL ONE (00:46)
[2021-06-06] MEDS ORDERED: cefTRIAXone 2,000 MG VIAL ONE (00:48)
--- NOTE | 2021-06-06 01:20 | NUR ---
PATIENT SLEEPING AT THIS TIME VITALS SIGNS IN NORMAL LIMITS //DiCaprio RN
[2021-06-06 03:56] LABS: APPEARANCE,URINE CLEAR (CLEAR); BILIRUBIN,URINE NEGATIVE (NEGATIVE); BLOOD, URINE NEGATIVE (NEGATIVE); COLOR,URINE YELLOW (YELLOW); LEUKOCYTE ESTERASE ,URINE NEGATIVE (NEGATIVE); NITRITE, URINE NEGATIVE (NEGATIVE); UGLUCOSE NEGATIVE (NEGATIVE)
[2021-06-06] MEDS ORDERED: ACETAMINOPHEN 325 MG TAB PO PRN (07:05)
[2021-06-06] MEDS ORDERED: ONDANSETRON 4 MG/2 ML VIAL IVP PRN (07:05)
--- NOTE | 2021-06-06 07:30 | NUR ---
US TECH AT BEDSIDE PERFORMING PELVIC US
--- NOTE | 2021-06-06 07:30 | NUR ---
Report received from JONAH Pollock. Transfer of care at this time.
--- NOTE | 2021-06-06 08:15 | NUR ---
breakfast tray provided to pt, pt sitting comfortable in bed.
[2021-06-06] MEDS: NACL 0.9% 1,000 ML IV SCH ×2 (08:51→20:41)
--- NOTE | 2021-06-06 08:52 | NUR ---
PT FINISHED 80% OF BREAKFAST TRAY, PT RESTING COMFORTABLE IN BED
[2021-06-06 09:49] LABS: BASOPHILS % (AUTO) 0.6 % (0.0-2.0); EOSINOPHILS # (AUTO) 0.1 K/uL (0-0.4); EOSINOPHILS % (AUTO) 0.9 % (0.0-4.0); HEMATOCRIT 32.9 % (36-52); HEMOGLOBIN 11.2 g/dL (12.0-18.0); LYMPHOCYTES # (AUTO) 1.6 K/uL (2.0-11.5); LYMPHOCYTES % (AUTO) 25.3 % (20.5-51.1); MEAN CORPUSCULAR HEMOGLOBIN 33 pg (27-31); MEAN CORPUSCULAR HGB CONC 34 g/dL (33-37); MEAN CORPUSCULAR VOLUME 95.5 fL (80-94); MONOCYTES # (AUTO) 0.8 K/uL (0.8-1.0); MONOCYTES % (AUTO) 11.7 % (1.7-9.3); NEUTROPHILS % (AUTO) 61.5 % (42.2-75.2); PLATELET COUNT (AUTO) 141 K/uL (140-450); RED BLOOD CELL COUNT(AUTO) 3.44 MIL/uL (4.20-6.10); RED CELL DISTRIBUTION WIDTH 14.9 % (11.6-13.7); WHITE BLOOD COUNT (AUTO) 6.5 K/uL (4.8-10.8)
--- NOTE | 2021-06-06 10:00 | NUR ---
PATIENT ASLEEP IN BED POSITIONED FOR COMFORT; HOB ELEVATED; BEDRAILS UP X2; BED DOWN.
[2021-06-06 10:26] LABS: MAGNESIUM 1.8 mg/dL (1.8-2.4); PHOSPHORUS 2.9 mg/dL (2.5-4.9); THYROID STIMULATING HORMONE 2.75 uIU/mL (0.34-3.74)
[2021-06-06 10:31] LABS: ANION GAP 14.4 (8-16); CARBON DIOXIDE 22.8 mmol/L (21-32); CHLORIDE 110 mmol/L (98-107); CREATININE 1.1 mg/dL (0.6-1.3); GLUCOSE 117 mg/dL (74-106); POTASSIUM 4.2 mmol/L (3.5-5.1); SODIUM SERUM 143 mmol/L (136-145); UREA NITROGEN, BLOOD 26 mg/dL (7-18)
--- NOTE | 2021-06-06 12:00 | NUR ---
lunch tray provided to pt. pt is resting comfortabely in bed.
--- NOTE | 2021-06-06 13:00 | NUR ---
[facility] [phone] admin from [facility]
--- NOTE | 2021-06-06 13:08 | NUR ---
PT FINISHED 100% OF MEAL TRAY. PATIENT POSITIONED FOR COMFORT; HOB ELEVATED; BEDRAILS UP X2
--- NOTE | 2021-06-06 14:59 | NUR ---
US at bedside performing US of bi-lat carotid.
--- NOTE | 2021-06-06 16:27 | NUR ---
dinner tray provider to pt, pt sitting in comfortable postion
[2021-06-06] MEDS: DIVALPROEX SPRINKLES 125 MG CAPDR PO SCH (16:42)
--- NOTE | 2021-06-06 19:24 | NUR ---
Pt report given to JONAH LAYTON. Transfer of care at this time.
--- NOTE | 2021-06-06 20:42 | NUR ---
HS medications given.
[2021-06-06] MEDS ORDERED: risperiDONE 1 MG TAB PO SCH (21:00)
[2021-06-06] MEDS ORDERED: BENZTROPINE 1 MG TAB PO SCH (21:00)
[2021-06-06] MEDS ORDERED: ATORVASTATIN 20 MG TAB PO SCH (21:00)
--- NOTE | 2021-06-06 21:01 | NUR ---
Report given to JONAH Blue.
--- NOTE | 2021-06-06 21:28 | NUR ---
Patient will transfer to room 125B via gurney with Awilda RN and EMT.
--- NOTE | 2021-06-06 22:00 | NUR ---
PT ARRIVED ON MST UNIT VIA GURNEY TO RM 125B AFTER GETTING REPORT FROM VALE VALENCIA RN. PT A&OX2-3 SHAKING HX OF PARKINSONS DISEASE. TOO UNSTEADY TO WALK. SHIFTED TO BED WITH 2 ASSIST. SETTLED IN BED. IVF 0.9%NS INFUSING @80CC/HR PER MD ORDER. IV SITE 22G IN R WRIST. POSITIONAL ARM BOARD IN PLACE. PT REFUSED A NEW IV . ENDORSE TO DAYS TO FOLLOW UP. VSS AFEBRILE. NAD AT THIS TIME. VOIDING PER URINAL WITH ASSIST IN PLACEMENT. HAD SNACK: 1/2 TURKEY SANDWICH, APPLE JUICE AND VANILLA PUDDING. ORIENTED PT TO CALL LIGHT AND SURROUNDINGS. ALL SAFETY MEASURES IN PLACE.BED ALARM ON. WILL CONTINUE TO MONITOR.
--- NOTE | 2021-06-07 03:50 | NUR ---
PT SLEEPING IN 2HR INTERVALS. IV IS POSITIONAL. IV PUMP ALARM SOUNDS FREQUENTLY. PT REMAINS A&OX2. EDUCATED PT ON IMPORTANCE OF VITAL SIGNS. AND IV FLUIDS.PT REQUESTS COFFEE WITH BREAKFAST. RE ORIENTED PT TO TIME AND ROUTINE OF UNIT. ALL SAFETY MEASURES IN PLACE. CONTINUE TO OBSERVE.
--- NOTE | 2021-06-07 07:30 | NUR ---
RECEIVED REPORT FROM MAP AND CHART MOUNTER. PT IN BED WITH HOB ELEVATED. AOX3, WITH EPISODES OF CONFUSION. ABLE TO MAKE NEEDS KNOW, NO C/O PAIN, NO SOB. WITH R WRIST 22G RUNNING NS AT 80C/HR. SKIN INTACT. SAFETY PRECAUTIONS IN PLACE. WILL CONTINUE TO MONITOR
--- NOTE | 2021-06-07 07:30 | NUR ---
ENDORSED PT REPORT TO AM RN. POC DISCUSSED, WELL TAWANNA CASSIDY CONSULT. PT REQUEST FOR SERVICE IS LOGGED IN. EDUCATED PT ON THE IMPORTANCE OF HAVING BLOOD DRAWN FOR LABS. PT RELUCTANTLY AGREED. ALL SAFETY MEASURES IN PLACE. CONTINUE TO MONITOR.
[2021-06-07 08:00] VITALS: BP 137/98
[2021-06-07] MEDS: NACL 0.9% 1,000 ML IV SCH (08:05)
[2021-06-07 08:32] LABS: BASOPHILS # (AUTO) 0.1 K/uL (0.00-0.22); BASOPHILS % (AUTO) 0.9 % (0.0-2.0); EOSINOPHILS # (AUTO) 0.2 K/uL (0-0.4); EOSINOPHILS % (AUTO) 2.8 % (0.0-4.0); HEMATOCRIT 35.3 % (36-52); LYMPHOCYTES # (AUTO) 2.4 K/uL (2.0-11.5); LYMPHOCYTES % (AUTO) 32.2 % (20.5-51.1); MEAN CORPUSCULAR HEMOGLOBIN 32 pg (27-31); MEAN CORPUSCULAR HGB CONC 34 g/dL (33-37); MONOCYTES # (AUTO) 0.9 K/uL (0.8-1.0); MONOCYTES % (AUTO) 12.5 % (1.7-9.3); NEUTROPHILS # (AUTO) 3.8 K/uL (1.8-7.7); NEUTROPHILS % (AUTO) 51.6 % (42.2-75.2); PLATELET COUNT (AUTO) 148 K/uL (140-450); RED BLOOD CELL COUNT(AUTO) 3.72 MIL/uL (4.20-6.10); RED CELL DISTRIBUTION WIDTH 14.6 % (11.6-13.7); WHITE BLOOD COUNT (AUTO) 7.4 K/uL (4.8-10.8)
[2021-06-07] MEDS: DIVALPROEX SPRINKLES 125 MG CAPDR PO SCH ×2 (08:54→13:09)
[2021-06-07] MEDS ORDERED: amLODIPine 5 MG TAB PO SCH (09:00)
[2021-06-07] MEDS ORDERED: ASPIRIN 81 MG TAB.CHEW PO SCH (09:00)
[2021-06-07 09:06] LABS: ANION GAP 10.5 (8-16); CARBON DIOXIDE 27.8 mmol/L (21-32); CHLORIDE 105 mmol/L (98-107); GLUCOSE 90 mg/dL (74-106); POTASSIUM 4.3 mmol/L (3.5-5.1); SODIUM SERUM 139 mmol/L (136-145); UREA NITROGEN, BLOOD 21 mg/dL (7-18)
[2021-06-07 09:10] LABS: MAGNESIUM 1.6 mg/dL (1.8-2.4); PHOSPHORUS 3.1 mg/dL (2.5-4.9)
--- NOTE | 2021-06-07 09:10 | NUR ---
DUE MEDS GIVEN. TOLERATED WELL
--- NOTE | 2021-06-07 10:55 | NUR ---
PATIENT HAS BEEN SCREENED AND CATEGORIZED MODERATE NUTRITION RISK. PATIENT WILL BE SEEN WITHIN 3-5 DAYS OF ADMISSION. [address]
--- NOTE | 2021-06-07 11:55 | NUR ---
DC PLANNING: RECEIVED A CALL FROM CASIMIRO AT [facility] [employer] UPDATED PATIENTS CLINICAL, HE PROVIDE THE AUTH FOR TRANSPORT [id number]. CALLED PT"S RESIDENCE [phone] LEFT MESSAGE ON THE VOICE MAIL. ARRANGED TRANSPORT WITH [facility] TIME 1PM. NOTIFIED CATHERINE MCKENZIE CM TO FOLLOW
[2021-06-07 12:00] VITALS: BP 128/76
--- NOTE | 2021-06-07 12:30 | NUR ---
DISCHARGE INSTRUCTIONS GIVEN TOPATIENT AND TO [facility] IN [facility]
--- NOTE | 2021-06-07 15:00 | NUR ---
PICKED UP BY ELYSIA TO [facility]. STABLE UPON DISCHARGE
--- NOTE | 2021-06-08 15:51 | NUR ---
LATE ENTRY- CEFTRIAXONE IV DISCONTINUED AT 2127.
--- NOTE | 2021-06-09 14:22 | NUR ---
LATE ENTRY- IV NORMAL SALINE DISCONTINUED AT 2127.
== END 2021-06-07 15:15 | disposition home or self-care (01) ==
LOC: MED 20:13 → MTU 23:36 → MMU 06-06 20:31
PROVIDERS: ADMIT General Practice; ATTEND General Practice
DX: R53.1 Weakness (principal); Z20.822 Contact with and (suspected) exposure to COVID-19; R55 Syncope and collapse; N17.9 Acute kidney failure, unspecified; G90.9 Disorder of the autonomic nervous system, unspecified; I12.9 Hypertensive chronic kidney disease with stage 1 through stage 4 chronic kidney disease, or unspecified chronic kidney disease; E11.22 Type 2 diabetes mellitus with diabetic chronic kidney disease; N18.31 Chronic kidney disease, stage 3a; F31.9 Bipolar disorder, unspecified; G93.41 Metabolic encephalopathy; G20 Parkinson's disease; Z79.899 Other long term (current) drug therapy
CPT/HCPCS: 36415; 71045; 76770; 80048; 80053; 81003; 82550; 83036; 83605; 83735; 83880; 84100; 84443; 84484; 85025; 87040; 87081; 87086; 87426; 93005; 93307; 93880; 96361; 96365; 96366; 97163; 97530; 99291; G0378; J0696; Q0092

== ENCOUNTER 2021-06-17 18:23 | Emergency (ER) | payer OTHER, MEDICAID ==
[~2021-06-17] VITALS: Ht 175.3 cm; Wt 99.8 kg
[2021-06-17 18:23] VITALS: BP 106/62
[~2021-06-17 18:23] MED LIST changes: -APIX2.5 PO; +ASPI-1749 PO; +ATOR20TA PO; -AZIT250T3 PO; -DEC4 PO
--- NOTE | 2021-06-17 18:23 | NUR ---
76 Y/[facility] SYNCOPE WHILE HAVING A BM NKDA PMD: PARKINSONS, BIPOLAR, HTN, MUSCLE WEAKNESS, SCHIZOPHRENIA, CHRONIC HEP C
--- NOTE | 2021-06-17 19:16 | NUR ---
Pt report given to JONAH MATHEWS. Transfer of care at this time.
[2021-06-17 19:37] LABS: BASOPHILS # (AUTO) 0.1 K/uL (0.00-0.22); BASOPHILS % (AUTO) 0.8 % (0.0-2.0); EOSINOPHILS # (AUTO) 0.1 K/uL (0-0.4); EOSINOPHILS % (AUTO) 1.2 % (0.0-4.0); HEMATOCRIT 37.4 % (36-52); HEMOGLOBIN 12.6 g/dL (12.0-18.0); LYMPHOCYTES # (AUTO) 1.7 K/uL (2.0-11.5); LYMPHOCYTES % (AUTO) 23.8 % (20.5-51.1); MEAN CORPUSCULAR HEMOGLOBIN 33 pg (27-31); MEAN CORPUSCULAR HGB CONC 34 g/dL (33-37); MEAN CORPUSCULAR VOLUME 97.1 fL (80-94); MONOCYTES # (AUTO) 0.8 K/uL (0.8-1.0); MONOCYTES % (AUTO) 11.2 % (1.7-9.3); NEUTROPHILS # (AUTO) 4.5 K/uL (1.8-7.7); PLATELET COUNT (AUTO) 164 K/uL (140-450); RED BLOOD CELL COUNT(AUTO) 3.86 MIL/uL (4.20-6.10); RED CELL DISTRIBUTION WIDTH 14.1 % (11.6-13.7); WHITE BLOOD COUNT (AUTO) 7.1 K/uL (4.8-10.8)
--- NOTE | 2021-06-17 19:48 | NUR ---
PT GIVEN URINAL AT BEDSIDE TO VOID.
[2021-06-17 19:56] LABS: ANION GAP 12.1 (8-16); ASPARTATE AMINOTRANSFERASE 19 U/L (15-37); CARBON DIOXIDE 25.7 mmol/L (21-32); CHLORIDE 107 mmol/L (98-107); CREATININE 1.5 mg/dL (0.6-1.3); GLUCOSE 132 mg/dL (74-106); POTASSIUM 3.8 mmol/L (3.5-5.1); SODIUM SERUM 141 mmol/L (136-145); TOTAL BILIRUBIN 0.4 mg/dL (0.0-1.0); UREA NITROGEN, BLOOD 27 mg/dL (7-18)
--- NOTE | 2021-06-17 20:50 | NUR ---
PT UNABLE TO URINATE AT THIS TIME. NOTIFIED. OK AT THIS TIME.
--- NOTE | 2021-06-17 21:29 | NUR ---
UNABLE TO OBTAIN TRANSPORT FOR PT HOME UNTIL AM.
--- NOTE | 2021-06-17 22:54 | NUR ---
PT SLEEPING AT THIS TIME.
--- NOTE | 2021-06-18 01:10 | NUR ---
PT ASSISTED TO REPOSITION IN THE BED. DENIES ANY COMPLAINTS AT THIS TIME.
--- NOTE | 2021-06-18 02:18 | NUR ---
PT IS SLEEPING AT THIS TIME.
--- NOTE | 2021-06-18 03:16 | NUR ---
CALLED AT [facility]. OK TO TRANSPORT PT HOME.
--- NOTE | 2021-06-18 04:12 | NUR ---
TRANSPORT AT BEDSIDE
[2021-06-18 04:18] VITALS: BP 128/79
--- NOTE | 2021-06-18 04:18 | NUR ---
Patient discharged with v/s stable. Written and verbal after care instructions given and explained. Patient verbalized understanding. Ambulance Transport with to home AT [facility]. All questions addressed prior to discharge. Advised to follow up with PMD.
== END 2021-06-18 04:18 | disposition home or self-care (01) ==
LOC: MED 18:23
DX: R55 Syncope and collapse (principal); R25.1 Tremor, unspecified; Z86.69 Personal history of other diseases of the nervous system and sense organs; J44.9 Chronic obstructive pulmonary disease, unspecified; E11.9 Type 2 diabetes mellitus without complications; I10 Essential (primary) hypertension; F31.9 Bipolar disorder, unspecified; F20.9 Schizophrenia, unspecified; Z79.899 Other long term (current) drug therapy; Z79.82 Long term (current) use of aspirin
CPT/HCPCS: 36415; 80053; 83735; 84484; 85025; 93005; 99285

== ENCOUNTER 2022-01-25 08:48 | Inpatient (IN) | payer OTHER, MEDICAID ==
[~2022-01-25] VITALS: Ht 180.3 cm; Wt 92.1 kg
--- NOTE | 2022-01-25 08:50 | NUR ---
ERMIAS IBARRA TAKEN TO BED 10
[2022-01-25 08:55] VITALS: BP 107/54
[2022-01-25] MEDS ORDERED: NACL 0.9% 1,000 ML IV ONE (08:55)
[2022-01-25] MEDS ORDERED: VANCOMYCIN PER PHARMACY MC PRN (08:55)
[2022-01-25] MEDS ORDERED: VANCOMYCIN 1GM/DEXT 5% PREMIX 200 ML IV ONE (08:55)
[2022-01-25] MEDS ORDERED: PIPERACILLIN/TAZOBACTAM 3.375 GM in DEXTROSE 5% 50 ML IV ONE (08:55)
--- NOTE | 2022-01-25 09:45 | NUR ---
76/M ERMIAS FROM [facility]. PER EMS STAFF CALLED 911 STATING PATIENT HAD A SYNCOPAL EPISODE ON THE TOILET THIS MORNING, DENIES FALL, HEAD OR NECK INJURY. PATIENT AOX3 UPON ARRIVAL WHICH IS BASELINE FOR PATIENT, PATIENT STATING "I WAS CONSTIPATED AND TRYING TO USE THE BATHROOM." PATIENT DENIES SOB, CP, DIZZINESS OR NUMBNESS. EMS STATING ON SCENE PATIENT HYPOTENSIVE AND BRADYCARDIC, ON ARRIVAL BP 107/54 AND HR 74. PATIENT PLACED IN GOWN ON BEDSIDE DIRT SUPERVISOR, DR. BELLAMY AWARE OF PATIENT UPON ARRIVAL.
[2022-01-25 09:46] LABS: BASOPHILS # (AUTO) 0.1 K/uL (0.00-0.22); BASOPHILS % (AUTO) 0.9 % (0.0-2.0); EOSINOPHILS # (AUTO) 0.1 K/uL (0-0.4); EOSINOPHILS % (AUTO) 1.8 % (0.0-4.0); HEMATOCRIT 36.4 % (36-52); HEMOGLOBIN 12.4 g/dL (12.0-18.0); LYMPHOCYTES # (AUTO) 1.7 K/uL (2.0-11.5); LYMPHOCYTES % (AUTO) 21.4 % (20.5-51.1); MEAN CORPUSCULAR HEMOGLOBIN 33 pg (27-31); MEAN CORPUSCULAR HGB CONC 34 g/dL (33-37); MEAN CORPUSCULAR VOLUME 96.8 fL (80-94); MONOCYTES # (AUTO) 0.8 K/uL (0.8-1.0); MONOCYTES % (AUTO) 9.6 % (1.7-9.3); NEUTROPHILS # (AUTO) 5.3 K/uL (1.8-7.7); NEUTROPHILS % (AUTO) 66.3 % (42.2-75.2); PLATELET COUNT (AUTO) 146 K/uL (140-450); RED BLOOD CELL COUNT(AUTO) 3.76 MIL/uL (4.20-6.10); RED CELL DISTRIBUTION WIDTH 14.2 % (11.6-13.7)
[2022-01-25] MEDS ORDERED: PIPERACILLIN/TAZOBACTAM 3.375 GM VIAL IV ONE (09:51)
[2022-01-25 10:10] LABS: ALBUMIN 2.4 g/dL (3.4-5.0); ANION GAP 15.8 (8-16); ASPARTATE AMINOTRANSFERASE 18 U/L (15-37); CARBON DIOXIDE 24.6 mmol/L (21-32); CHLORIDE 111 mmol/L (98-107); CREATININE 1.6 mg/dL (0.6-1.3); GLUCOSE 109 mg/dL (74-106); POTASSIUM 4.4 mmol/L (3.5-5.1); SODIUM SERUM 147 mmol/L (136-145); TOTAL BILIRUBIN 0.4 mg/dL (0.0-1.0); UREA NITROGEN, BLOOD 31 mg/dL (7-18)
--- NOTE | 2022-01-25 10:15 | NUR ---
PATIENT PROVIDED WITH URINAL FOR URINE SAMPLE, UNABLE TO PROVIDE URINE, DR. BELLAMY AWARE
[2022-01-25] MEDS ORDERED: DEXT15SY7 PO (10:22)
[2022-01-25] MEDS ORDERED: VANCOMYCIN 1,000 MG VIAL ONE (10:25)
--- NOTE | 2022-01-25 10:30 | NUR ---
SPOKE WITH NATASHA AT [facility], STATED SHE WILL FAX OVER PATIENTS CODE STATUS AND PAPERWORK
[2022-01-25] MEDS ORDERED: NACL 0.9% 500 ML IV ONE (10:45)
--- NOTE | 2022-01-25 11:23 | NUR ---
ATTEMPTED TO STRAIGHT CATH PATIENT ORDERED, NO URINE OUTPUT NOTED, DR. BELLAMY MADE AWARE
[2022-01-25] MEDS ORDERED: LORazepam 2 MG/ML VIAL IVP PRN (11:30)
[2022-01-25] MEDS ORDERED: MAG SULF 2000 MG/WATER PREMIX 50 ML IV PRN (11:30)
[2022-01-25] MEDS ORDERED: DOCUSATE SODIUM 100 MG GELCAP PO PRN (11:30)
[2022-01-25] MEDS ORDERED: ACETAMINOPHEN 325 MG TAB PO PRN (11:30)
[2022-01-25] MEDS ORDERED: ZOLPIDEM 10 MG TAB PO PRN (11:30)
[2022-01-25] MEDS ORDERED: MORPHINE SULFATE 2 MG/ML SYR IVP PRN (11:30)
[2022-01-25] MEDS ORDERED: ONDANSETRON 4 MG/2 ML VIAL IVP PRN (11:30)
[2022-01-25] MEDS ORDERED: POTASSIUM CHLORIDE 10 MEQ TABER PO PRN (11:30)
[2022-01-25] MEDS ORDERED: PIPERACILLIN/TAZOBACTAM 2.25 GM in DEXTROSE 5% 50 ML IV ONE (11:35)
[2022-01-25] MEDS ORDERED: DOCU-2 PO (12:38)
[2022-01-25] MEDS: DIVALPROEX SPRINKLES 125 MG CAPDR PO SCH ×2 (13:08→19:11)
--- NOTE | 2022-01-25 13:30 | NUR ---
PATIENT PROVIDED WITH LUNCH TRAY, ASSISTED UP IN BED, ASSISTED TO EAT. ALL NEEDS MET AT THIS TIME
--- NOTE | 2022-01-25 14:57 | NUR ---
Patient will be admitted to care of DR. VALLADARES. Admited to TELE. Will go to room 110B. Belongings list completed. BEDSIDE Report to CHRISTOPHER.
[2022-01-25 15:30] VITALS: BP 144/93
[2022-01-25] MEDS: bisacodyL 10 MG SUPP RC SCH (17:00)
--- NOTE | 2022-01-25 19:30 | NUR ---
RECEIVED REPORT FROM DAY SHIFT NURSE DAV FOR CONTINUITY OF CARE. PATIENT IS A&O X 1, ABLE TO GIVE NAME AND DATE OF , WASN'T SURE OF THE: MONTH, DAY, OR YEAR; LOCATION; OR REASON FOR BEING HERE. PATIENT IS ON ROOM AIR, BREATHING IS NORMAL WITH SYMMETRICAL RISE AND FALL OF CHEST. IV IS A 20G IN THE LEFT HAND, NO FLUIDS ARE RUNNING AT THIS TIME. NOTICED PATIENT'S LEFT HAND IS BENT DOWNWARD (FLEXION) IF WRIST HAS NO STRENGTH. HAND IS NOT CONTRACTED, I WAS ABLE TO MOVE PATIENT'S HAND UP WITHOUT DIFFICULTY. PATIENT ABLE TO HOLD CUP IN RIGHT HAND, BUT NOT LEFT. EQUAL BILATERAL STRENGTH IN FEET AND LEGS. PATIENT IS SITTING UP IN BED, WATCHING TV. PATIENT IS ABLE TO ANSWER QUESTIONS, SOMETIMES QUESTIONS NEED TO BE ASKED MORE THAN ONCE AND EMPHASIZED DUE TO PATIENT BEING CONFUSED ON WHAT'S BEING ASKED. BED IS IN LOWEST POSITION, WHEELS LOCKED, CALL LIGHT IN PLACE. WILL CONTINUE TO OBSERVE PATIENT.
[2022-01-25 20:00] VITALS: BP 96/57
[2022-01-25] MEDS: risperiDONE 1 MG TAB PO SCH (21:23)
[2022-01-25] MEDS: ATORVASTATIN 20 MG TAB PO SCH (21:23)
[2022-01-25] MEDS: BENZTROPINE 1 MG TAB PO SCH (21:24)
--- NOTE | 2022-01-25 21:30 | NUR ---
ADMINISTERED 2100 MEDICATIONS. PATIENT WAS ABLE TO SWALLOW MEDICATIONS WITHOUT ANY ISSUES. REMOVED PATIENT'S TRAY, PATIENT HAD EATEN ALL FOOD. PATIENT STATES THAT HE'S OKAY. BREATHING IS NORMAL WITH SYMMETRICAL RISE AND FALL OF CHEST. PATIENT IS SITTING UP IN BED WATCHING TV. WILL CONTINUE TO OBSERVE PATIENT.
--- NOTE | 2022-01-25 23:00 | NUR ---
LOOKED IN ON PATIENT. PATIENT WAS LYING IN BED IN HIGH FOWLERS POSITION WATCHING TV. PATIENT STATES THAT HE IS DOING OKAY. PATIENT WAS ENCOURAGED TO TRY AND GET SOME SLEEP. PATIENT IS RUNNING NO FLUIDS AT THIS TIME. BREATHING WAS NORMAL WITH SYMMETRICAL RISE AND FALL OF CHEST. WILL CONTINUE TO OBSERVE PATIENT.
[2022-01-26] VITALS: BP_SYST 116; BP_SYST 144; BP_DIAS 61; BP_DIAS 64
--- NOTE | 2022-01-26 02:00 | NUR ---
LOOKED IN ON PATIENT. PATIENT WAS LYING IN BED STILL AWAKE, BUT APPEARED TO BE IN AND OUT OF CONSCIOUSNESS. ASKED PATIENT HOW HE WAS, PATIENT STATED THAT HE WAS OKAY. PATIENT WAS STILL DRY. ENCOURAGED PATIENT TO TRY AND SLEEP. PATIENT STATED HE WOULD. BREATHING WAS NORMAL WITH SYMMETRICAL RISE AND FALL OF CHEST.
[2022-01-26 04:00] VITALS: BP 108/69
--- NOTE | 2022-01-26 04:30 | NUR ---
LOOKED IN ON PATIENT. PATIENT WAS AWAKE, ASKED PATIENT IF HE SLEPT AT ALL. PATIENT STATED THAT HE'S JUST BEEN WATCHING "THIS" HE KEPT LOOKING AT THE TV. ASKED PATIENT IF HE HAD URINATED, PATIENT SAID YES. CHECKED PATIENT. PATIENT WAS WET. PATIENT WAS CHANGED BY MYSELF AND FINANCIAL EXAMINER HUNTER. PATIENT HAD VOIDED AND HAD A BM. PATIENT TOLERATED CHANGING WELL. PATIENT'S BREATHING WAS NORMAL WITH SYMMETRICAL RISE AND FALL OF CHEST. WILL CONTINUE TO OBSERVE PATIENT.
--- NOTE | 2022-01-26 06:30 | NUR ---
PATIENT IS LYING IN BED HIGH FOWLERS POSITION. INFORMED PATIENT THAT NEW NURSE WOULD BE TAKING OVER SOON. PATIENT STATED OKAY. ASKED HOW PATIENT WAS DOING. PATIENT STATED THAT HE WAS DOING OKAY. PATIENT'S BREATHING WAS SYMMETRICAL WITH RISE AND FALL OF CHEST. WILL CONTINUE TO OBSERVE PATIENT.
[2022-01-26 06:42] LABS: ANION GAP 13.1 (8-16); BASOPHILS # (AUTO) 0.1 K/uL (0.00-0.22); BASOPHILS % (AUTO) 0.5 % (0.0-2.0); CARBON DIOXIDE 24.9 mmol/L (21-32); CHLORIDE 111 mmol/L (98-107); CREATININE 1.4 mg/dL (0.6-1.3); EOSINOPHILS % (AUTO) 0.1 % (0.0-4.0); GLUCOSE 97 mg/dL (74-106); HEMOGLOBIN 11.4 g/dL (12.0-18.0); LYMPHOCYTES % (AUTO) 18.1 % (20.5-51.1); MEAN CORPUSCULAR HEMOGLOBIN 33 pg (27-31); MEAN CORPUSCULAR HGB CONC 34 g/dL (33-37); MEAN CORPUSCULAR VOLUME 96.4 fL (80-94); MONOCYTES # (AUTO) 1.3 K/uL (0.8-1.0); MONOCYTES % (AUTO) 11.8 % (1.7-9.3); NEUTROPHILS # (AUTO) 7.7 K/uL (1.8-7.7); NEUTROPHILS % (AUTO) 69.5 % (42.2-75.2); PLATELET COUNT (AUTO) 145 K/uL (140-450); RED BLOOD CELL COUNT(AUTO) 3.43 MIL/uL (4.20-6.10); RED CELL DISTRIBUTION WIDTH 14.5 % (11.6-13.7); SODIUM SERUM 145 mmol/L (136-145); UREA NITROGEN, BLOOD 32 mg/dL (7-18); WHITE BLOOD COUNT (AUTO) 11.1 K/uL (4.8-10.8)
--- NOTE | 2022-01-26 07:40 | NUR ---
ENDORSED TO DAY SHIFT NURSE MICK FOR CONTINUITY OF CARE. PATIENT IS STABLE.
[2022-01-26 08:00] VITALS: BP 120/65
--- NOTE | 2022-01-26 08:00 | NUR ---
RECEIVE ENDORSEMENT FROM PM SHIFT WHILE PATIENT RES TIN BED, ON TEL.MONITOR, PIV L. HAND 20G SALINE LOCK. WILL CONTINUE TO MONITOR
[2022-01-26] MEDS: DIVALPROEX SPRINKLES 125 MG CAPDR PO SCH ×3 (08:37→17:57)
[2022-01-26] MEDS: amLODIPine 5 MG TAB PO SCH (08:37)
[2022-01-26] MEDS: ASPIRIN 81 MG TAB.CHEW PO SCH (08:37)
--- NOTE | 2022-01-26 11:20 | NUR ---
PATIENT HAS BEEN SCREENED AND CATEGORIZED LOW NUTRITION RISK. PATIENT WILL BE SEEN WITHIN 7 DAYS OF ADMISSION. 01/25/22-02/01/[address]
--- NOTE | 2022-01-26 11:45 | NUR ---
PT. WITH LOW ALDO SCALE AT MODERATE TO HIGH RISK, CONTINUE TO FOLLOW PRESSURE INJURY PREVENTION INTERVENTIONS. -POSITIONING: TURN AND REPOSITION PATIENT Q 2H OR SOONER USE PILLOWS TO KEEP BONY PROMINENCES FROM DIRECT CONTACT WITH SURFACES USE REPOSITIONING WEDGES TO PROVIDE 30-DEGREE ANGLE FOR SIDE LYING POSITIONS OFFLOADING OR FOAM DRESSING TO ALL TUBING TO PREVENT MEDICAL DEVICES RELATED PRESSURE INJURY -RE-EVALUATING AND MANAGING INCONTINENCE MONITOR SKIN CONDITION DURING POSITION CHANGE DO NOT MASSAGE REDNESS, BONY PROMINENCES FREQUENT MERRILL-CARE AND PROVIDE BARRIER CREAMS PRN IF SOILING MOISTURE CONTROL BY OFFER BED SHIELDS/URINAL /ABSORBENT PAD TO WICK AND HOLD MOISTURE KEEP SKIN DRY AND PROTECT FROM FRICTION -MANAGE FRICTION/SHEAR/MOBILITY KEEP HOB AT THE LOWEST LEVEL OF ELEVATION NO MORE THAN 30 DEGREE UNLESS OTHERWISE CONTRAINDICATED USE LIFT SHEET OR TRANSFER DEVICE TO MOVE PATIENT AND PREVENT LATERAL SHEER. PROTECT HEELS, ELBOWS BONY PROMINENCES WITH SKIN BERRIES OR FOAM DRESSING IF EXPOSED TO FRICTION OFFLOAD BILATERAL HEELS BY PLACING PILLOWS UNDER CALVES AT ALL TIMES, UNLESS OTHERWISE CONTRAINDICATED -PRESSURE REDISTRIBUTION SURFACE THERAPY JUAN ISOFLEX MATTRESS -NUTRITION: PLEASE FOLLOW RD RECOMMENDATIONS AND OFFER NUTRITION SUPPLEMENTS IF ORDERED. PLEASE CONTACT WOUND CARE NURSE FOR ANY QUESTION AND CHANGE OF WOUND CONDITION.
[2022-01-26 12:00] VITALS: BP 104/58
[2022-01-26] MEDS: PIPERACILLIN/TAZOBACTAM 2.25 GM in DEXTROSE 5% 50 ML IV SCH ×2 (13:34→21:00)
--- NOTE | 2022-01-26 14:15 | NUR ---
DC PLANNING OUTREACHED TO [facility] TO GATHER COLLATERAL INFORMATION PATIENT IS MINIMALLY VERBAL, HOWEVER UNSUCCESSFUL. LEFT HIPPA COMPLIANT MESSAGE REQUESTING A RETURN PHONE CALL. Addendum: 01/27/22 at 1557 by Young Hernadez SW OUTREACHED TO [facility] AND GATHERED COLLATERAL INFORMATION. ADMIN (CARLOS & SARAH) REPORT THAT PATIENT HAS BEEN RESIDENT OF FACILITY SINCE 05/27/20. PATIENT HAS LIMITED SUPPORTS AND IS REPORTED TO HAVE NO KNOWN FAMILY INVOLVEMENT. PATIENT IS RECENT HOSPICE PATIENT, BEGAN HOSPICE CARE WITH [facility] TWO MONTHS AGO. ADMIN REPORTS THAT BC LEVEL OF CARE HAS CHANGED, PATIENT CAN NOT RETURN TO [facility]. IT IS REPORTED THAT [facility] WITH [facility] [phone] IS TO IDENTIFY SNF FACILITY SUITABLE FOR PATIENT TO RESUME HOSPICE CARE. LUIGI OUTREACHED TO [facility] TO IDENTIFY DC PLAN, HOWEVER, UNSUCCESSFUL, A MESSAGE WAS LEFT REQUESTING A RETURN PHONE CALL. Addendum: 01/28/22 at 1348 by Young Hernadez OUTREACHED TO HOSPICE AGENCY AND SPOKE WITH NATASHA [phone] FOR UPDATE ON SNF PLACEMENT. NATASHA REPORTED SHE WOULD F/U WITH AGENCY LIAISON FOR UPDATE. LUIGI FAXED PACKET TO HOSPICE AGENCY [phone]. NATASHA TO FOLLOW UP. Addendum: 01/28/22 at 1602 by Young BLACKWOOD OUTREACHED TO NATASHA TO F/U. NATASHA REPORTS THAT PACKET WAS SENT OVER TO THEIR CONTRACTED FACILITY OF [facility] AND FACILITY IS REVIEWING. NATASHA TO FOLLOW UP. LUIGI NOTIFIED NATASHA IF CM IS NOT AVAILABLE TO FOLLOW UP WITH HOUSE SUP OR CHARGE NURSE, NATASHA AGREED. Addendum: 01/28/22 at 1604 by Young BLACKWOOD ENDORSED TO HOUSE SUP. Addendum: 01/31/22 at 0856 by Young BLACKWOOD OUTREACHED TO [facility] AND SPOKE TO IMANI WHO REPORTS NATASHA IS NOT CURRENTLY IN OFFICE. NATASHA EXPECTED TO BE IN OFFICE LATER THIS MORNING. LEFT MESSAGE WITH IMANI REQUESTING A RETURN PHONE CALL FROM NATASHA FOR UPDATE. Addendum: 01/31/22 at 1331 by Young BLACKWOOD 9:26AM ---LUIGI FIELDED CALL FROM NATASHA WITH [facility] WHO REPORTS THAT [facility] HAD DENIED PATIENT. NATASHA REPORTED THAT ATTEMPTS IN IDENTIFYING SNF WERE BEING MADE. LUIGI REMINDED NATASHA THAT DISCHARGE ORDER HAS BEEN ORDERED SINCE MONDAY. 130PM- OUTREACHED TO NATASHA TO FOLLOW UP ON IDENTIFIED FACILITY. NATASHA REPORTS THAT PACKET IS BEING REVIEWED WITH [facility]. NATASHA TO FOLLOW UP BY 330PM WITH ACCEPTING FACILITY HOWEVER, IF A SNF HAS NOT BEEN IDENTIFIED, PATIENT WILL BE DC TO [facility]. NATASHA AWARE.
[2022-01-26] MEDS ORDERED: VANCOMYCIN PER PHARMACY MC PRN (15:10)
[2022-01-26 16:00] VITALS: BP 130/60
[2022-01-26 16:45] LABS: APPEARANCE,URINE CLEAR (CLEAR); BILIRUBIN,URINE NEGATIVE (NEGATIVE); BLOOD, URINE TRACE-I (NEGATIVE); COLOR,URINE YELLOW (YELLOW); LEUKOCYTE ESTERASE ,URINE NEGATIVE (NEGATIVE); NITRITE, URINE NEGATIVE (NEGATIVE); UGLUCOSE NEGATIVE (NEGATIVE)
[2022-01-26] MEDS ORDERED: VANCOMYCIN HCL 1.25 GM in DEXTROSE 5% 250 ML IV SCH (17:00)
--- NOTE | 2022-01-26 19:37 | NUR ---
ENDORSE PATIENT TO PM SHIFT NURSE WHILE PATIENT RESTING IN BED, ON TEL.MONITOR, PIV L. HAND 20G SALINE LOCK AFTER IV ANTIBIOTIC ZOSYN AND VANCOMYCIN GIVEN.
--- NOTE | 2022-01-26 19:38 | NUR ---
RECEIVED ENDORSEMENT FOR CONTINUITY OF CARE FROM VEL MCKENZIE, PATIENT WAS STABLE AT THE CHANGE OF SHIFT. PATIENT WAS IN BED ALERT ABLE TO HOLD A CONVERSATION WITH NURSING BUT UNABLE TO TELL THE NURSE WHY HE IS IN THE HOSPITAL. PATIENT DENIED ANY PAIN/DISCOMFORT. NURSING NOTED PATIENT WAS BREATHING WITHOUT DISTRESS OR DIFFICULTIES. NO REPORTED FAINTING EPISODES TODAY AND PATIENT REPORTED HAVING A LARGE BOWEL MOVEMENT. SIDE RAILS UP X 3. CALL LIGHT WITHIN REACH AND EXPLAINED TO PLEASE USE FOR ASSISTANCE AND NEEDS. PATIENT SAID OK BUT NURSING WILL FREQUENT THIS ROOM FOR ANTICIPATED ASSISTANCE. [email or web address]
[2022-01-26 20:00] VITALS: BP 111/60
[2022-01-26] MEDS: ATORVASTATIN 20 MG TAB PO SCH (20:51)
[2022-01-26] MEDS: risperiDONE 1 MG TAB PO SCH (20:51)
[2022-01-26] MEDS: BENZTROPINE 1 MG TAB PO SCH (20:51)
--- NOTE | 2022-01-26 21:42 | NUR ---
PATIENT IN BED ABLE TO TAKE MEDICATION WITH MINIMAL ASSISTANCE FROM NURSING. PATIENT WAS ABLE TO RESUME TO WATCHING TVE WITHOUT PAIN/DISCOMFORT. NO NOTED SYNCOPE AT THIS TIME. [email or web address]
--- NOTE | 2022-01-26 23:19 | NUR ---
PATIENT IN BED ASLEEP AT THIS TIME. SIDE RAILS UP AND CALL LIGHT WITHIN REACH. NO NOTED S/S OF PAIN/DISCOMFORT. NO NOTED RESPIRATORY DISTRESS. NURSING WILL CONTINUE TO FREQUENT THIS ROOM FOR ANTICPATED NEEDS. [email or web address]
--- NOTE | 2022-01-27 01:21 | NUR ---
PATIENT REMAINS ASLEEP AT THIS TIME. [email or web address]
--- NOTE | 2022-01-27 03:39 | NUR ---
PATIENT IN BED ASLEEP. PATIENT KEPT CLEAN AND DRY DURING THE SHIFT. NO NOTED S/S OF PAIN. NO EPISODES OF FAINTING. NO NOTED RESPIRATORY DISTRESS. CALL LIGHT WITH REACH SIDE RAILS UP X 3. [email or web address]
[2022-01-27 04:00] VITALS: BP 118/78
--- NOTE | 2022-01-27 05:12 | NUR ---
PATIENT REMAINS IN BED RESTING. PATIENT DENIED ANY PAIN/DISCOMFORT AT THIS TIME. SIDERAILS UP X 2 . CALL LIGHT WITHIN REACH. [email or web address]
--- NOTE | 2022-01-27 07:01 | NUR ---
ENDORSED PATIENT TO HIRAL RN, PATIENT WAS STABLE DURING THE CHANGE OF SHIFT. [email or web address]
[2022-01-27 07:07] LABS: BASOPHILS # (AUTO) 0.1 K/uL (0.00-0.22); BASOPHILS % (AUTO) 0.9 % (0.0-2.0); EOSINOPHILS # (AUTO) 0.2 K/uL (0-0.4); EOSINOPHILS % (AUTO) 2.2 % (0.0-4.0); HEMATOCRIT 31.6 % (36-52); HEMOGLOBIN 10.9 g/dL (12.0-18.0); LYMPHOCYTES # (AUTO) 3.1 K/uL (2.0-11.5); LYMPHOCYTES % (AUTO) 31.1 % (20.5-51.1); MEAN CORPUSCULAR HEMOGLOBIN 33 pg (27-31); MEAN CORPUSCULAR HGB CONC 34 g/dL (33-37); MEAN CORPUSCULAR VOLUME 96.3 fL (80-94); MONOCYTES % (AUTO) 10.4 % (1.7-9.3); NEUTROPHILS # (AUTO) 5.5 K/uL (1.8-7.7); NEUTROPHILS % (AUTO) 55.4 % (42.2-75.2); PLATELET COUNT (AUTO) 131 K/uL (140-450); RED BLOOD CELL COUNT(AUTO) 3.28 MIL/uL (4.20-6.10); RED CELL DISTRIBUTION WIDTH 14.5 % (11.6-13.7)
[2022-01-27 07:38] LABS: ANION GAP 11.5 (8-16); CARBON DIOXIDE 27.4 mmol/L (21-32); CHLORIDE 110 mmol/L (98-107); CREATININE 1.5 mg/dL (0.6-1.3); GLUCOSE 98 mg/dL (74-106); POTASSIUM 3.9 mmol/L (3.5-5.1); SODIUM SERUM 145 mmol/L (136-145)
[2022-01-27 08:00] VITALS: BP 119/53
--- NOTE | 2022-01-27 08:00 | NUR ---
RECEIVED IN BED AWAKE A/OX2-3 ASSESSMENT COMPLETED PLAN OF CARE REVIEWED PT NOTED TO BE A FEEDER TURNED AND REPOSITIONED ABLE TO USE URINAL WITH PERIODS OF INCONTINENCE CALL LIGHT IN REACH WILL CONTINU TO MONIOTR AND ASSESS
[2022-01-27] MEDS: DIVALPROEX SPRINKLES 125 MG CAPDR PO SCH ×3 (08:32→18:22)
[2022-01-27] MEDS: ASPIRIN 81 MG TAB.CHEW PO SCH (08:32)
[2022-01-27] MEDS: amLODIPine 5 MG TAB PO SCH (08:32)
[2022-01-27] MEDS: POLYETHYLENE GLYCOL 17 GM/PKT PO SCH ×2 (08:33→20:55)
[2022-01-27 12:00] VITALS: BP 134/77
--- NOTE | 2022-01-27 12:30 | NUR ---
NO CHANGES NOTED NO DISTRESS AT THIS TIME WILL CONTINUE TO MONITOR AND ASSESS
[2022-01-27] MEDS: PIPERACILLIN/TAZOBACTAM 2.25 GM in DEXTROSE 5% 50 ML IV SCH ×3 (12:43→20:56)
[2022-01-27 16:00] VITALS: BP 109/62
--- NOTE | 2022-01-27 18:51 | NUR ---
ALL NEEDS ANTICIPATED AND MET WILL ENDORSE CARE TO ONCOMING LICENSED NURSE NO ACUTE DISTRESS CALL LIGHT IN REACH
--- NOTE | 2022-01-27 19:20 | NUR ---
RECEIVED PT ON BED AAOX2, FORGETFUL, ABLE TO MAKE NEEDS KNOWN, DENIES ANY PAIN, IV INFUSING WELL AT TKO RATE, ON SEIZURE PRECAUTION WITH SIDE RAILS PADDED AND UP, FREQUENT ROUNDS WILL BE MADE, CALL LIGHT WITHIN REACH.
[2022-01-27 20:00] VITALS: BP 115/79
[2022-01-27] MEDS: ATORVASTATIN 20 MG TAB PO SCH (20:54)
[2022-01-27] MEDS: risperiDONE 1 MG TAB PO SCH (20:54)
[2022-01-27] MEDS: BENZTROPINE 1 MG TAB PO SCH (20:54)
--- NOTE | 2022-01-27 21:00 | NUR ---
DUE MEDS CRUSHED AND GIVEN WITH APPLE SAUCE, APPLE JUICE PROVIDED, TOLERATED WELL, REPOSITIONED AND OFFLOAD PRESSURE AREAS, FALL PRECAUTION IN PLACE, ALL NEEDS ANTICIPATED.
--- NOTE | 2022-01-27 22:40 | NUR ---
PT INCONTINENT WITH URINE AND STOOL, BM WITH MODERATE SOFT BROWN STOOL, PERINEAL CARE DONE, CONTINUE TO MONITOR CLOSELY.
--- NOTE | 2022-01-28 01:30 | NUR ---
ROUNDS MADE, SEEN PT SLEEPING, VISIBLE CHEST RISE AND FALL, NO SIGNS OF DISTRESS, MONITORED CLOSELY.
[2022-01-28 04:00] VITALS: BP 129/71
[2022-01-28] MEDS: PIPERACILLIN/TAZOBACTAM 2.25 GM in DEXTROSE 5% 50 ML IV SCH ×3 (04:26→20:58)
--- NOTE | 2022-01-28 06:20 | NUR ---
PT AWAKE, REQUESTING TO GO TO BR TO VOID, ASSISTED IN USING URINAL, VOIDED FREELY WITH 150ML URINE, WARM BLANKET PROVIDED PER REQUEST, MONITORED CLOSELY.
--- NOTE | 2022-01-28 07:18 | NUR ---
PT ASLEEP, EASILY AROUSABLE, NO DISTRESS NOTED, REPORT GIVEN TO RN VEL AND KUMAR FOR CONTINUITY OF CARE.
[2022-01-28 07:20] LABS: BASOPHILS # (AUTO) 0.1 K/uL (0.00-0.22); BASOPHILS % (AUTO) 0.7 % (0.0-2.0); EOSINOPHILS # (AUTO) 0.2 K/uL (0-0.4); HEMATOCRIT 30.7 % (36-52); HEMOGLOBIN 10.6 g/dL (12.0-18.0); LYMPHOCYTES # (AUTO) 2.2 K/uL (2.0-11.5); LYMPHOCYTES % (AUTO) 27.8 % (20.5-51.1); MEAN CORPUSCULAR HEMOGLOBIN 33 pg (27-31); MEAN CORPUSCULAR HGB CONC 35 g/dL (33-37); MEAN CORPUSCULAR VOLUME 95.6 fL (80-94); MONOCYTES # (AUTO) 0.9 K/uL (0.8-1.0); MONOCYTES % (AUTO) 11.9 % (1.7-9.3); NEUTROPHILS # (AUTO) 4.4 K/uL (1.8-7.7); NEUTROPHILS % (AUTO) 56.6 % (42.2-75.2); PLATELET COUNT (AUTO) 125 K/uL (140-450); RED BLOOD CELL COUNT(AUTO) 3.21 MIL/uL (4.20-6.10); RED CELL DISTRIBUTION WIDTH 14.3 % (11.6-13.7); WHITE BLOOD COUNT (AUTO) 7.8 K/uL (4.8-10.8)
[2022-01-28 08:00] VITALS: BP 136/75
[2022-01-28 08:02] LABS: ANION GAP 10.3 (8-16); CARBON DIOXIDE 26.5 mmol/L (21-32); CHLORIDE 110 mmol/L (98-107); CREATININE 1.2 mg/dL (0.6-1.3); GLUCOSE 91 mg/dL (74-106); POTASSIUM 3.8 mmol/L (3.5-5.1); SODIUM SERUM 143 mmol/L (136-145); UREA NITROGEN, BLOOD 29 mg/dL (7-18)
--- NOTE | 2022-01-28 08:07 | NUR ---
RECEIVE ENDORSEMENT FROM PM SHIFT WHILE PATIENT RESTING IN BED, MED/SURG PENDING FOR PLACEMENT, JULIA Jean Baptiste HAND 20G SALINE LOCK. WILL CONTINUE TO MONITOR
[2022-01-28] MEDS: ASPIRIN 81 MG TAB.CHEW PO SCH (09:13)
[2022-01-28] MEDS: DIVALPROEX SPRINKLES 125 MG CAPDR PO SCH ×3 (09:13→17:53)
[2022-01-28] MEDS: POLYETHYLENE GLYCOL 17 GM/PKT PO SCH ×2 (09:14→20:56)
[2022-01-28] MEDS: amLODIPine 5 MG TAB PO SCH (09:14)
--- NOTE | 2022-01-28 17:57 | NUR ---
RECEIVE CALL FROM [facility] ([phone]) WHO INFORM NURSE THAT HOSPICE STILL LOOK FOR FACILITY WILLING TO TAKE PATIENT. WILL CONTINUE TO MONITOR
--- NOTE | 2022-01-28 19:33 | NUR ---
ENDORSE PATIENT FOR PM SHIFT WHILE PATIENT RESTING IN BED, PENDING FOR PLACEMENT, PIV L. HAND 20G SALINE LOCK.
[2022-01-28 20:00] VITALS: BP 114/67
--- NOTE | 2022-01-28 20:00 | NUR ---
1914: REC'D PT FROM AM RN TO ASSUME PLAN OF CARE. PT'S AWAKE , BUT CONFUSED. ON HIGH FOWLERS, JUST FINISHED EATING DINNER, NO ASPIRATION AND NO DIFFICULTY SWALLOWING. ON ROOM AIR. HAS SL ON THE #20G PATENT, ON ATBX. T'S CALM AND COOPERATIVE, NO C/O PAIN. 1999: SHIFT ASSESSMENT DONE. HOURLY ROUNDS AND TURN Q2. SAFETY AND SKIN PROTOCOL ON PROGRESS. CONTINUE MONITOR. 2200: CLEAN PT. INC TO STOOL AND URINE. 0000: TURNED Q2HRS. MOUTH CARE DONE. 0200: ROUNDS MADE, SLEEPING COMFORTABLY. LIGHTS OFF AND CALL LIGHT INR EACH.
[2022-01-28] MEDS: risperiDONE 1 MG TAB PO SCH (20:55)
[2022-01-28] MEDS: ATORVASTATIN 20 MG TAB PO SCH (20:56)
[2022-01-28] MEDS: BENZTROPINE 1 MG TAB PO SCH (20:56)
--- NOTE | 2022-01-29 | NUR ---
0000: PT HAD LARGE SOFT BM BROWN IN COLOR. CLEANED AND REPOSITIONED. 0200: AM CARE RENDERED; 0400: HAD ANOTHER LARGE BM BROWN SOFT STOOL. INCONTINENCE TO STOOL AND URINE. 0600: NO C/O PAIN, NO RESP DISTRESS. VITAL SIGNS STABLE. 0645: NO SIGNIFICANT CHANGES FROM PREVIOUS SHIFT ASSESSMENT STABLE. WILL ENDORSE TO AM RN TO ASSUME PLAN OF CARE.
[2022-01-29 04:00] VITALS: BP 118/69
[2022-01-29] MEDS: PIPERACILLIN/TAZOBACTAM 2.25 GM in DEXTROSE 5% 50 ML IV SCH (04:46)
--- NOTE | 2022-01-29 07:13 | NUR ---
ENDORSED PT TO RN ELICEO TO ASSUME PLAN OF CARE.
[2022-01-29 07:22] LABS: BASOPHILS % (AUTO) 0.7 % (0.0-2.0); EOSINOPHILS # (AUTO) 0.3 K/uL (0-0.4); EOSINOPHILS % (AUTO) 3.7 % (0.0-4.0); HEMATOCRIT 28.5 % (36-52); LYMPHOCYTES # (AUTO) 2.6 K/uL (2.0-11.5); LYMPHOCYTES % (AUTO) 35.6 % (20.5-51.1); MEAN CORPUSCULAR HEMOGLOBIN 34 pg (27-31); MEAN CORPUSCULAR HGB CONC 35 g/dL (33-37); MEAN CORPUSCULAR VOLUME 97.5 fL (80-94); MONOCYTES # (AUTO) 0.9 K/uL (0.8-1.0); MONOCYTES % (AUTO) 12.1 % (1.7-9.3); NEUTROPHILS # (AUTO) 3.5 K/uL (1.8-7.7); NEUTROPHILS % (AUTO) 47.9 % (42.2-75.2); PLATELET COUNT (AUTO) 153 K/uL (140-450); RED BLOOD CELL COUNT(AUTO) 2.92 MIL/uL (4.20-6.10); RED CELL DISTRIBUTION WIDTH 14.1 % (11.6-13.7); WHITE BLOOD COUNT (AUTO) 7.2 K/uL (4.8-10.8)
[2022-01-29 07:51] LABS: ANION GAP 12.1 (8-16); CARBON DIOXIDE 25.1 mmol/L (21-32); CHLORIDE 109 mmol/L (98-107); CREATININE 1.1 mg/dL (0.6-1.3); GLUCOSE 99 mg/dL (74-106); POTASSIUM 4.2 mmol/L (3.5-5.1); SODIUM SERUM 142 mmol/L (136-145); UREA NITROGEN, BLOOD 27 mg/dL (7-18)
[2022-01-29] MEDS: ASPIRIN 81 MG TAB.CHEW PO SCH (09:27)
[2022-01-29] MEDS: amLODIPine 5 MG TAB PO SCH (09:28)
[2022-01-29] MEDS: DIVALPROEX SPRINKLES 125 MG CAPDR PO SCH ×3 (09:28→17:36)
[2022-01-29] MEDS: POLYETHYLENE GLYCOL 17 GM/PKT PO SCH ×2 (09:29→20:57)
--- NOTE | 2022-01-29 18:51 | NUR ---
END OF SHIFT NOTE: PT READY FOR D/C TO FACILITY WHEN CLEARED. PT CONDITION STABLE. PT UNABLE (EVEN W [id number]) TO GET OOB TO STANDING POSITION. PT VERY SHAKY AND UNABLE TO STAND TO AMBULATE TO RESTROOM. PT AGREES TO USE BEDPAN FOR NOW.
--- NOTE | 2022-01-29 19:30 | NUR ---
RECEIVED REPORT FROM DAY SHIFT NURSE ELICEO FOR CONTINUITY OF CARE. PATIENT IS A&O X2, FORGETFUL. PATIENT IS ON ROOM AIR, BREATHING IS NORMAL WITH SYMMETRICAL RISE AND FALL OF CHEST. IV IS A 20G IN THE LEFT HAND, NO FLUIDS RUNNING AT THIS TIME. PATIENT IS AWAKE, SITTING UP IN BED. INTRODUCED SELF TO PATIENT, PATIENT WAS PLEASANT AND RESPONDED APPROPRIATELY BY STATING "HI". BED IS IN LOWEST POSITION, WHEELS LOCKED, CALL LIGHT IN PLACE. WILL CONTINUE TO OBSERVE PATIENT.
[2022-01-29 20:00] VITALS: BP 128/77
[2022-01-29] MEDS: risperiDONE 1 MG TAB PO SCH (20:56)
[2022-01-29] MEDS: BENZTROPINE 1 MG TAB PO SCH (20:57)
[2022-01-29] MEDS: ATORVASTATIN 20 MG TAB PO SCH (20:57)
--- NOTE | 2022-01-29 21:00 | NUR ---
ADMINISTERED 2100 MEDICATIONS TO PATIENT. PATIENT TOLERATED MEDICATIONS WELL WITHOUT ANY DIFFICULTY SWALLOWING. PATIENT IS SITTING IN HIGH-FOWLERS POSITION. PATIENT HAS NO IV FLUIDS RUNNING. PATIENT HAD EATEN 100% OF HIS DINNER. PATIENT IS ABLE TO EAT INDEPENDENTLY WITH STAND BY ASSISTANCE DUE TO SHAKINESS FROM PARKINSON'S DISEASE. PATIENT HAD SOME CRUMBS FROM DINNER ON HIS BLANKET; REMOVED BLANKET AND GAVE PATIENT A NEW ONE. PATIENT THANKED ME FOR NEW BLANKET. WILL CONTINUE TO OBSERVE PATIENT.
--- NOTE | 2022-01-29 23:30 | NUR ---
LOOKED IN ON PATIENT. PATIENT HAD VOIDED. CHANGED PATIENT WITH ASSISTANCE FROM CONI HARRISON. PATIENT HAD VOIDED AND HAD A BM. PATIENT TOLERATED CHANGE WELL. PATIENT WAS ABLE TO ASSIST IN CHANGE BY HELPING US TO ROLL HIM OVER, BUT ASSISTANCE WAS STILL NEEDED. PATIENT'S BREATHING WAS NORMAL WITH SYMMETRICAL RISE AND FALL OF CHEST. WILL CONTINUE TO OBSERVE PATIENT.
--- NOTE | 2022-01-30 01:30 | NUR ---
LOOKED IN ON PATIENT. PATIENT WAS SITTING IN SEMI-FOWLERS TO HIGH FOWLERS POSITION. INFORMED PATIENT THAT I COULD LOWER HIM IF HE'S UNCOMFORTABLE. PATIENT STATED NO, HE WAS FINE (INDICATING THAT HE WAS COMFORTABLE IN HIS CURRENT POSITION). SUGGESTED TO THE PATIENT THAT HE TRY AND GET SOME SLEEP. PATIENT STATED HE WOULD. WILL CONTINUE TO OBSERVE PATIENT.
--- NOTE | 2022-01-30 03:30 | NUR ---
LOOKED IN ON PATIENT. PATIENT WAS RESTING IN HIGH-FOWLERS POSITION. PATIENT'S BREATHING IS NORMAL WITH SYMMETRICAL RISE AND FALL OF CHEST. WILL CONTINUE TO OBSERVE PATIENT.
[2022-01-30 04:00] VITALS: BP 145/82
--- NOTE | 2022-01-30 06:00 | NUR ---
LOOKED IN ON PATIENT. PATIENT WAS SLEEPING LYING SUPINE. PATIENT'S BREATHING WAS NORMAL WITH SYMMETRICAL RISE AND FALL OF CHEST. WILL CONTINUE TO OBSERVE PATIENT.
[2022-01-30 07:04] LABS: BASOPHILS # (AUTO) 0.1 K/uL (0.00-0.22); BASOPHILS % (AUTO) 0.8 % (0.0-2.0); CARBON DIOXIDE 26.3 mmol/L (21-32); CHLORIDE 109 mmol/L (98-107); EOSINOPHILS # (AUTO) 0.3 K/uL (0-0.4); EOSINOPHILS % (AUTO) 4.7 % (0.0-4.0); GLUCOSE 92 mg/dL (74-106); HEMATOCRIT 29.7 % (36-52); HEMOGLOBIN 10.3 g/dL (12.0-18.0); LYMPHOCYTES # (AUTO) 2.3 K/uL (2.0-11.5); LYMPHOCYTES % (AUTO) 34.9 % (20.5-51.1); MEAN CORPUSCULAR HEMOGLOBIN 34 pg (27-31); MEAN CORPUSCULAR HGB CONC 35 g/dL (33-37); MEAN CORPUSCULAR VOLUME 97.4 fL (80-94); MONOCYTES # (AUTO) 0.8 K/uL (0.8-1.0); MONOCYTES % (AUTO) 12.5 % (1.7-9.3); NEUTROPHILS # (AUTO) 3.1 K/uL (1.8-7.7); NEUTROPHILS % (AUTO) 47.1 % (42.2-75.2); PLATELET COUNT (AUTO) 155 K/uL (140-450); POTASSIUM 4.3 mmol/L (3.5-5.1); RED BLOOD CELL COUNT(AUTO) 3.05 MIL/uL (4.20-6.10); RED CELL DISTRIBUTION WIDTH 13.7 % (11.6-13.7); SODIUM SERUM 141 mmol/L (136-145); UREA NITROGEN, BLOOD 25 mg/dL (7-18); WHITE BLOOD COUNT (AUTO) 6.6 K/uL (4.8-10.8)
--- NOTE | 2022-01-30 07:40 | NUR ---
ENDORSED TO DAY SHIFT NURSE DAV FOR CONTINUITY OF CARE. PATIENT IS STABLE.
[2022-01-30 08:00] VITALS: BP 120/66
[2022-01-30] MEDS: ASPIRIN 81 MG TAB.CHEW PO SCH (09:00)
[2022-01-30] MEDS: DIVALPROEX SPRINKLES 125 MG CAPDR PO SCH ×3 (10:08→18:50)
[2022-01-30] MEDS: POLYETHYLENE GLYCOL 17 GM/PKT PO SCH ×2 (10:09→21:11)
[2022-01-30] MEDS: amLODIPine 5 MG TAB PO SCH (10:09)
[2022-01-30 16:00] VITALS: BP 118/69
--- NOTE | 2022-01-30 19:30 | NUR ---
RECEIVED REPORT FROM DAY SHIFT NURSE MADELEINE FOR CONTINUITY OF CARE. PATIENT IS A&O X1-2 AND FORGETFUL. PATIENT IS ON ROOM AIR, BREATHING IS NORMAL WITH SYMMETRICAL RISE AND FALL OF CHEST. PATIENT HAS A 20G IN THE LEFT HAND, NO FLUIDS RUNNING AT THIS TIME (SALINE LOCKED). PATIENT IS LYING SUPINE IN BED, AWAKE. PATIENT STATED THAT HE WAS DOING OKAY. BED WAS IN LOWEST POSITION, WHEELS LOCKED, CALL LIGHT IN PLACE. WILL CONTINUE TO OBSERVE PATIENT.
[2022-01-30 20:00] VITALS: BP 116/87
[2022-01-30] MEDS: ATORVASTATIN 20 MG TAB PO SCH (21:10)
[2022-01-30] MEDS: BENZTROPINE 1 MG TAB PO SCH (21:10)
[2022-01-30] MEDS: risperiDONE 1 MG TAB PO SCH (21:11)
--- NOTE | 2022-01-30 21:15 | NUR ---
OBTAINED PATIENT'S VITALS. VITALS WERE: BP 116/87, HR 88, O2 97, RR 18, TEMP 98.6. ADMINISTERED 2100 MEDICATION TO PATIENT. PATIENT WAS ABLE TO SWALLOW PILLS WITHOUT DIFFICULTY. PATIENT WAS ALSO ABLE TO DRINK WATER WITH MIRALAX IN IT. PATIENT'S BLANKETS WERE ALSO CHANGED. PATIENT DOES NOT NEED TO BE CHANGED AT THIS TIME. WILL CONTINUE TO OBSERVE PATIENT.
--- NOTE | 2022-01-30 23:00 | NUR ---
LOOKED IN ON PATIENT. PATIENT WAS LYING SUPINE ON SIDE SLEEPING. BREATHING WAS NORMAL WITH SYMMETRICAL RISE AND FALL OF CHEST. BED WAS IN LOWEST POSITION, WHEELS LOCKED, CALL LIGHT IN PLACE. WILL CONTINUE TO OBSERVE PATIENT.
--- NOTE | 2022-01-31 00:30 | NUR ---
PATIENT WAS CHANGED. PATIENT HAD VOIDED, AND HAD A BM. [facility] CARE WAS DONE, AND NEW [employer] DIAPER WAS APPLIED. PATIENT WAS ABLE TO ASSIST BY ROLLING HIMSELF OVER ON TO EACH SIDE UPON REQUEST TO DO SO. PATIENT TOLERATED CHANGE WELL, AND WENT BACK TO SLEEP AFTERWARDS. WILL CONTINUE TO OBSERVE PATIENT.
--- NOTE | 2022-01-31 02:37 | NUR ---
LOOKED IN ON PATIENT. PATIENT WAS SLEEPING, LYING SUPINE. BREATHING WAS NORMAL WITH SYMMETRICAL RISE AND FALL OF CHEST. WILL CONTINUE TO OBSERVE PATIENT.
[2022-01-31 04:00] VITALS: BP 129/81
--- NOTE | 2022-01-31 04:28 | NUR ---
OBTAINED PATIENT'S 0400 VITALS. VITALS WERE: BP 129/81, HR 78, O2 99, RR 18, TEMP 97.9. PATIENT WAS JUST WAKING UP I ENTERED THE ROOM. CHECKED PATIENT'S DIAPER, PATIENT WAS DRY. AFTER OBTAINING VITALS PATIENT CLOSED HIS EYES TO GO BACK TO SLEEP. BREATHING WAS NORMAL WITH SYMMETRICAL RISE AND FALL OF CHEST. BED WAS IN LOWEST POSITION, WHEELS LOCKED, CALL LIGHT IN PLACE. WILL CONTINUE TO OBSERVE PATIENT.
--- NOTE | 2022-01-31 07:30 | NUR ---
RECEIVED REPORT FROM MANAGER ONLINE NURSE. NO SEIZURE PRECAUTIONS IN PLACE. MANAGER ONLINE NURSE TO PLACE PRECAUTIONS. CALL LIGHT IN REACH. ALL OTHER SAFETY MEASURES IN PLACE. NO S/S OF DISTRESS.
--- NOTE | 2022-01-31 07:40 | NUR ---
ENDORSED TO DAY SHIFT NURSE BRENDAN. PATIENT IS STABLE.
--- NOTE | 2022-01-31 07:45 | NUR ---
RECEIVED REPORT FROM PHOTOGRAPHIC EQUIPMENT MECHANIC NURSE FOR CONTINUITY OF CARE. PATIENT IS A&O X2. PATIENT IS ON ROOM AIR, WITH UNLABORED BREATHING. PATIENT HAS A 20G IN THE LEFT HAND, SALINE LOCKED. PATIENT IS LYING SUPINE IN BED, NO S/S OF DISTRESS. BED IN LOWEST POSITION, WHEELS LOCKED, CALL LIGHT IN PLACE. WILL CONTINUE TO OBSERVE PATIENT.
[2022-01-31 08:00] VITALS: BP 126/77
[2022-01-31] MEDS: ASPIRIN 81 MG TAB.CHEW PO SCH (09:35)
[2022-01-31] MEDS: amLODIPine 5 MG TAB PO SCH (09:35)
[2022-01-31] MEDS: DIVALPROEX SPRINKLES 125 MG CAPDR PO SCH ×3 (09:35→17:17)
[2022-01-31] MEDS: POLYETHYLENE GLYCOL 17 GM/PKT PO SCH ×2 (09:35→20:37)
--- NOTE | 2022-01-31 12:06 | NUR ---
DC PLANNING: PER SERVICES ACCOUNT MANAGER NOTES PATIENT UNABLE TO RETURN TO THE [facility] AND PER NATASHA AT [facility] UNABLE TO PLACE PATIENT TO SNF AND. FAXED TO [facility], DONN PANCHAL, FRANKIE MAURICIO AT [facility] WILL ACCEPT PATIENT IF WE HAVE AUTH FROM THE . CALLED STATED TO FAX THE CLINICALS. FAXED ALL PAPERWORK AND AWAITING FOR AUTHORIZATION. CM TO FOLLOW Addendum: 02/01/22 at 1213 by Nereida Simons RN DC PLANNING: [facility] ACCEPTED PATIENT WITH MEDICARE NO AUTH NEEDED. CAN GO TO ROOM 9B # TO GIVE REPORT [phone] PER HANG WILL ARRANGE TRANSPORT WITH [facility] [place] [facility] TIME BETWEEN 2-2:30 PM NOTIFIED CHARGE NURSE DU.
--- NOTE | 2022-01-31 13:30 | NUR ---
GAVE REPORT TO JONAH CROWDER FOR CONTINUITY OF CARE. PT IS STABLE
[2022-01-31 16:00] VITALS: BP 107/69
[2022-01-31 17:58] VITALS: BP 107/69
--- NOTE | 2022-01-31 19:24 | NUR ---
ENDORSE PATIENT TO PM SHIFT WHILE PATIENT RESTING IN BED, PENDING FOR SNF PLACEMENT, PIV L. HAND 20G SALINE LOCK
--- NOTE | 2022-01-31 19:40 | NUR ---
PER ENDORSED TO ME BY VEL CONNOR , RN - PT HAS DISCHARGE ORDER , BUT WAITING THE FINAL PLACEMENT FROM .
--- NOTE | 2022-01-31 20:00 | NUR ---
V/S 118/ 66 , RR 18 , O2 SAT 96 % , T 97. 7 F , NO S/SX OF ACUTE DISTRESS NOTED , FULLY WET DIAPER - WILL CLEAN UP .
[2022-01-31] MEDS: BENZTROPINE 1 MG TAB PO SCH (20:36)
[2022-01-31] MEDS: risperiDONE 1 MG TAB PO SCH (20:36)
[2022-01-31] MEDS: ATORVASTATIN 20 MG TAB PO SCH (20:36)
--- NOTE | 2022-02-01 | NUR ---
ROUNDS , NO S/SX OF ACUTE DISTRESS NOTED , WILL CONT. TO MONITOR , CALL LIGHT WITHIN REACH .
--- NOTE | 2022-02-01 02:00 | NUR ---
SLEEPING . CHEST RISE AND FALL EQUALLY . CALL LIGHT WITHIN REACH .
[2022-02-01 04:00] VITALS: BP 99/60
--- NOTE | 2022-02-01 04:00 | NUR ---
ROUNDS , NO S/SX OF ACUTE DISTRESS NOTED AT THIS TIME , CALL LIGHT WITHIN REACH .
--- NOTE | 2022-02-01 06:00 | NUR ---
SLEEPING , BUT EASILY AROUSABLE , NO S/SX OF ACUTE DISTRESS NOTED , CALL LIGHT WITHIN REACH .
--- NOTE | 2022-02-01 07:15 | NUR ---
ENDORSED - PT - STABLE .
--- NOTE | 2022-02-01 07:30 | NUR ---
RECEIVED REPORT FROM NIGHTSHIFT NURSEMAYA. PT A/O X3. MS. RA. HOB ELEVATED SEMI FOWLERS. RR EVEN & UNLABORED. NO SOB NOTED. L HAND #20 SL. DENIES PAIN. SKIN INTACT. NEEDS ALL MET AT THIS TIME. ALL SAFETY MEASURES IN PLACE. SEIZURE PRECAUTIONS IN PLACE.
[2022-02-01 08:00] VITALS: BP 113/69
--- NOTE | 2022-02-01 08:00 | NUR ---
REPORT GIVEN TO [facility] NURSEELICEO FOR CONTINUITY OF CARE.
[2022-02-01] MEDS: amLODIPine 5 MG TAB PO SCH (09:00)
[2022-02-01] MEDS: ASPIRIN 81 MG TAB.CHEW PO SCH (10:49)
[2022-02-01] MEDS: DIVALPROEX SPRINKLES 125 MG CAPDR PO SCH ×2 (10:49→12:56)
[2022-02-01] MEDS: POLYETHYLENE GLYCOL 17 GM/PKT PO SCH (10:50)
[2022-02-01 12:33] VITALS: BP 113/69
--- NOTE | 2022-02-01 12:45 | NUR ---
REPORT CALLED IN TO JONAH WILDER, OF [facility] AT [phone]. PT TO BE TRANSPORTED BETWEEN [phone] BY [facility] TO [facility], ROOM 9C PER TINA.
--- NOTE | 2022-02-01 13:12 | NUR ---
ALL DISCHARGE PAPERS PRINTED FOR PT AND SIGNED. PAMPHLET GIVEN TO PT. PT EAGER TO GO TO FACILITY.
--- NOTE | 2022-02-01 14:03 | NUR ---
PT GIVEN INCONTINENCE CARE AND SALINE LOCK REMOVED. HOSPITAL GOWN CHANGED. [facility] TEAM ARRIVED AND READY TO BRING PT [place] [facility] [place] PT BEING BROUGHT TO [facility] VEHICLE VIA [facility]. PT EAGER TO GO AND COOPERATIVE WITH TRANSFER. PT LEFT UNIT AT 1404 IN [facility] AND ACCOMPANIED BY THREE TRANSPORT PERSONNEL. PT ALERT, ORIENTED X 3, AND IN STABLE CONDITION. PT IN NO APPARENT DISTRESS.
--- NOTE | 2022-02-01 14:21 | NUR ---
02/01/22 RD INITIAL ASSESSMENT COMPLETED. PLEASE REFER TO NUTRITION ASSESSMENT UNDER CARE ACTIVITY FOR ESTIMATED NUTRITIONAL NEEDS. 1. CONTINUE WITH CURRENT REGULAR DIET PATIENT TOLERATES. 2. PROVIDED PATIENT WITH RECOMMENDATIONS ON INCREASING INTAKE OF CALCIUM-RICH FOODS. 3. MONITOR PO INTAKE. 4. RD TO FOLLOW-UP 7 DAYS, LOW RISK REVIEWED BY WILLIE ACOSTA RD
== END 2022-02-01 14:57 | DRG 871 ==
LOC: MED 08:48 → MTU 11:30
PROVIDERS: ADMIT Family Medicine; ATTEND Family Medicine
DX: A41.9 Sepsis, unspecified organism (principal); E43 Unspecified severe protein-calorie malnutrition; N17.0 Acute kidney failure with tubular necrosis; G93.41 Metabolic encephalopathy; N39.0 Urinary tract infection, site not specified; E87.0 Hyperosmolality and hypernatremia; J44.9 Chronic obstructive pulmonary disease, unspecified; I10 Essential (primary) hypertension; K56.41 Fecal impaction; K80.20 Calculus of gallbladder without cholecystitis without obstruction; I77.811 Abdominal aortic ectasia; E87.8 Other disorders of electrolyte and fluid balance, not elsewhere classified; E83.51 Hypocalcemia; D64.9 Anemia, unspecified; Z20.822 Contact with and (suspected) exposure to COVID-19; Z79.82 Long term (current) use of aspirin; Z79.899 Other long term (current) drug therapy; Z68.28 Body mass index [BMI] 28.0-28.9, adult
CPT/HCPCS: 36415; 70450; 71045; 80048; 80053; 80202; 81003; 82550; 82553; 83605; 83735; 83874; 83880; 84484; 85025; 87040; 87081; 87086; 93005; 96361; 96365; 96366; 96367; 97110; 97112; 97116; 97163-GP; 97530; 99291; 99292; J2543; J3370; J3475; J7060

== ENCOUNTER 2022-05-18 11:57 | Emergency (ER) | payer OTHER, MEDICAID ==
[~2022-05-18] VITALS: Ht 170.2 cm; Wt 99.8 kg
[~2022-05-18 11:57] MED LIST changes: +DEXT15SY7 PO; +DOCU-2 PO
[2022-05-18 12:00] VITALS: BP 130/66
--- NOTE | 2022-05-18 12:20 | NUR ---
77M BIBA from [facility] with c/o ALOC today. Per EMS, staff reported noting facial droop with far off gaze. Upon EMS arrival to pt's facility, pt was found alert. Pt has no complaints upon assessment, answering questions appropriately. Pt placed on bedside monitor, changed into gown, bed set to lowest position, side rails x2.
--- NOTE | 2022-05-18 13:55 | NUR ---
LAB AT BEDSIDE FOR BLOOD DRAW
[2022-05-18 14:18] LABS: BASOPHILS % (AUTO) 0.6 % (0.0-2.0); EOSINOPHILS % (AUTO) 0.1 % (0.0-4.0); HEMATOCRIT 35.9 % (36-52); HEMOGLOBIN 12.3 g/dL (12.0-18.0); LYMPHOCYTES # (AUTO) 0.5 K/uL (2.0-11.5); LYMPHOCYTES % (AUTO) 6.2 % (20.5-51.1); MEAN CORPUSCULAR HEMOGLOBIN 33 pg (27-31); MEAN CORPUSCULAR HGB CONC 34 g/dL (33-37); MEAN CORPUSCULAR VOLUME 95.2 fL (80-94); MONOCYTES # (AUTO) 0.8 K/uL (0.8-1.0); NEUTROPHILS # (AUTO) 6.6 K/uL (1.8-7.7); NEUTROPHILS % (AUTO) 83.1 % (42.2-75.2); PLATELET COUNT (AUTO) 153 K/uL (140-450); RED BLOOD CELL COUNT(AUTO) 3.77 MIL/uL (4.20-6.10); WHITE BLOOD COUNT (AUTO) 7.9 K/uL (4.8-10.8)
[2022-05-18] MEDS: NACL 0.9% 1,000 ML IV ONE (14:26)
[2022-05-18 14:30] LABS: ALBUMIN 3.4 g/dL (3.4-5.0); ANION GAP 12.7 (8-16); ASPARTATE AMINOTRANSFERASE 20 U/L (15-37); CARBON DIOXIDE 24.9 mmol/L (21-32); CHLORIDE 105 mmol/L (98-107); CREATININE 1.2 mg/dL (0.6-1.3); GLUCOSE 112 mg/dL (74-106); POTASSIUM 4.6 mmol/L (3.5-5.1); SODIUM SERUM 138 mmol/L (136-145); TOTAL BILIRUBIN 0.2 mg/dL (0.0-1.0); UREA NITROGEN, BLOOD 25 mg/dL (7-18)
--- NOTE | 2022-05-18 16:40 | NUR ---
#14 FR Beatty catheter utilizing sterile technique. Immediate return of 1375 ml clear/yellow urine noted. Urine sample collected and sent to lab. Pt tolerated procedure well.
[2022-05-18 17:25] LABS: APPEARANCE,URINE CLEAR (CLEAR); BILIRUBIN,URINE NEGATIVE (NEGATIVE); BLOOD, URINE NEGATIVE (NEGATIVE); COLOR,URINE YELLOW (YELLOW); LEUKOCYTE ESTERASE ,URINE NEGATIVE (NEGATIVE); NITRITE, URINE NEGATIVE (NEGATIVE); PH,URINE 6.5 (5.0-9.0); UGLUCOSE NEGATIVE (NEGATIVE)
--- NOTE | 2022-05-18 18:21 | NUR ---
REPORT GIVEN TO OLIVIA AT [facility]. INFORMED HER THAT TRANSPORTATION IS SET FOR 1830 TODAY.
[2022-05-18 18:36] VITALS: BP 124/73
--- NOTE | 2022-05-18 18:37 | NUR ---
Patient discharged with v/s stable. Written and verbal after care instructions ABOUT TIA, INDWELLING URINARY CATHETER CARE, AND ACUTE URINARY RETENTION AND DEHYDRATION given and explained. Patient verbalized understanding. Ambulance Transport with to [facility]. All questions addressed prior to discharge. Advised to follow up with PMD.
--- NOTE | 2022-05-18 18:37 | NUR ---
IV removed, catheter intact and site benign. Applied folded 4x4 gauze and tape to stop bleeding.
--- NOTE | 2022-05-18 18:40 | NUR ---
[facility] TRANSPORT AT BEDSIDE
== END 2022-05-18 18:37 ==
LOC: MED 11:57
DX: N39.0 Urinary tract infection, site not specified (principal); G45.9 Transient cerebral ischemic attack, unspecified; R33.9 Retention of urine, unspecified; J44.9 Chronic obstructive pulmonary disease, unspecified; I10 Essential (primary) hypertension; E78.5 Hyperlipidemia, unspecified; G20 Parkinson's disease; Z86.73 Personal history of transient ischemic attack (TIA), and cerebral infarction without residual deficits; Z79.899 Other long term (current) drug therapy; Z79.82 Long term (current) use of aspirin
CPT/HCPCS: 36415; 70450; 71045; 80053; 81003; 83605; 84484; 85025; 87040; 87086; 93005; 96360; 99285; J7030; Q0092

== ENCOUNTER 2023-05-26 11:27 | Inpatient (IN) | payer OTHER ==
[2023-05-26] VITALS (8 sets, daily range): BP systolic 97–130; BP diastolic 49–77; PULSE 76–105; RESP 15–20; TEMP 97.4–101.5; O2SAT 94–99
[~2023-05-26] VITALS: Ht 185.4 cm; Wt 99.8 kg
[~2023-05-26 11:27] MED LIST changes: +BENZ1TAB24 PO; -COG1 PO
[2023-05-26] MEDS ORDERED: IPRATROPIUM 0.02% 0.5 MG/2.5 ML NEBU INH ONE (11:55)
[2023-05-26] MEDS ORDERED: ALBUTEROL 0.083% 2.5 MG/3 ML NEBU INH ONE (11:55)
[2023-05-26 12:17] LABS: BASOPHILS % (AUTO) 0.3 % (0.0-2.0); HEMATOCRIT 35.9 % (36-52); LYMPHOCYTES # (AUTO) 0.6 K/uL (2.0-11.5); LYMPHOCYTES % (AUTO) 5.2 % (20.5-51.1); MEAN CORPUSCULAR HEMOGLOBIN 31 pg (27-31); MEAN CORPUSCULAR HGB CONC 34 g/dL (33-37); MEAN CORPUSCULAR VOLUME 93.7 fL (80-94); MONOCYTES # (AUTO) 1.4 K/uL (0.8-1.0); NEUTROPHILS # (AUTO) 9.8 K/uL (1.8-7.7); NEUTROPHILS % (AUTO) 82.5 % (42.2-75.2); PLATELET COUNT (AUTO) 169 K/uL (140-450); RED BLOOD CELL COUNT(AUTO) 3.84 MIL/uL (4.20-6.10); RED CELL DISTRIBUTION WIDTH 14.7 % (11.6-13.7); WHITE BLOOD COUNT (AUTO) 11.8 K/uL (4.8-10.8)
[2023-05-26] MEDS: NACL 0.9% 1,000 ML IV SCH ×2 (12:22→14:46)
[2023-05-26] MEDS ORDERED: PIPERACILLIN/TAZOBACTAM 3.375 GM VIAL IV ONE (12:23)
[2023-05-26 12:27] LABS: APPEARANCE,URINE CLEAR (CLEAR); BILIRUBIN,URINE NEGATIVE (NEGATIVE); BLOOD, URINE NEGATIVE (NEGATIVE); COLOR,URINE YELLOW (YELLOW); LEUKOCYTE ESTERASE ,URINE NEGATIVE (NEGATIVE); NITRITE, URINE NEGATIVE (NEGATIVE); PH,URINE 6.5 (5.0-9.0); PROTEIN,URINE TRACE (NEGATIVE); UGLUCOSE NEGATIVE (NEGATIVE); UROBILINOGEN,URINE 0.2 EU/dL (0.2 - 1)
[2023-05-26 12:32] LABS: ALANINE AMINOTRANSFERASE 11 U/L (12-78); ALBUMIN 2.4 g/dL (3.4-5.0); ALKALINE PHOSPHATASE 46 U/L (50-136); ASPARTATE AMINOTRANSFERASE 12 U/L (15-37); BILIRUBIN,DIRECT 0.1 mg/dL (0.0-0.3); INR 1.17 (0.8-1.2); PARTIAL THROMBOPLASTIN TIME 28.1 secs (22-35.6); PROTHROMBIN TIME 12.2 secs (10.8-13.4); TOTAL BILIRUBIN 0.3 mg/dL (0.0-1.0); TOTAL PROTEIN, SERUM 7.3 g/dL (6.4-8.2)
[2023-05-26 12:33] LABS: LACTIC ACID 1.7 mmol/L (0.4-2.0)
[2023-05-26 12:34] LABS: BLOOD GAS BASE EXCESS -2.1 mmol/L (-2.0-2.0); BLOOD GAS HCO3 21.3 mmol/L (22-26); BLOOD GAS PCO2 32.2 mmHg (35-45); BLOOD GAS PH 7.439 (7.35-7.45); BLOOD GAS PO2 88.9 mmHg (75-100)
[2023-05-26] MEDS: PIPERACILLIN/TAZOBACTAM 3.375 GM in DEXTROSE 5% 50 ML IV ONE (12:34)
[2023-05-26 12:35] LABS: BLOOD GAS O2 SAT% 97.3 % (92.0-98.5)
[2023-05-26 12:38] LABS: CALCIUM 8.4 mg/dL (8.5-10.1); CARBON DIOXIDE 23.3 mmol/L (21-32); CHLORIDE 105 mmol/L (98-107); CREATININE 1.5 mg/dL (0.6-1.3); GLUCOSE 144 mg/dL (74-106); POTASSIUM 4.3 mmol/L (3.5-5.1); SODIUM SERUM 138 mmol/L (136-145); UREA NITROGEN, BLOOD 25 mg/dL (7-18)
[2023-05-26] MEDS: ACETAMINOPHEN 650 MG SUPP RC ONE (12:42)
[2023-05-26] MEDS ORDERED: ONDANSETRON 4 MG/2 ML VIAL IVP PRN (13:50)
[2023-05-26] MEDS ORDERED: VANCOMYCIN PER PHARMACY MC PRN (14:00)
[2023-05-26] MEDS ORDERED: PHARMACY TO DOSE MC PRN (14:00)
[2023-05-26] MEDS: VANCOMYCIN 1.25GM PREMIX 250 ML IV SCH (15:00)
[2023-05-26 15:38] LABS: FLU A ANTIGEN negative (NEGATIVE); FLU B ANTIGEN NEGATIVE (NEGATIVE)
[2023-05-26 15:43] LABS: RSV NEGATIVE (NEGATIVE)
[2023-05-26] MEDS ORDERED: DIVALPROEX SPRINKLES 125 MG CAPDR PO SCH (17:00)
[2023-05-26] MEDS: PIPERACILLIN/TAZOBACTAM 3.375 GM in DEXTROSE 5% 50 ML IV SCH (18:00)
[2023-05-26] MEDS: risperiDONE 1 MG TAB PO SCH (21:49)
[2023-05-26] MEDS: DOCUSATE SODIUM 100 MG GELCAP PO SCH (21:50)
[2023-05-26] MEDS: ATORVASTATIN 20 MG TAB PO SCH (21:50)
[2023-05-26] MEDS: VALPROATE SODIUM 250 MG in NACL 0.9% 100 ML IV SCH (21:50)
[2023-05-26] MEDS: BENZTROPINE 1 MG TAB PO SCH (21:50)
[2023-05-27] VITALS (7 sets, daily range): BP systolic 130–145; BP diastolic 60–77; PULSE 63–89; RESP 18; TEMP 97.6–98.5; O2SAT 92–99
[2023-05-27 07:45] LABS: BASOPHILS % (AUTO) 0.6 % (0.0-2.0); EOSINOPHILS % (AUTO) 0.3 % (0.0-4.0); HEMATOCRIT 32.5 % (36-52); HEMOGLOBIN 11.1 g/dL (12.0-18.0); LYMPHOCYTES # (AUTO) 1.4 K/uL (2.0-11.5); LYMPHOCYTES % (AUTO) 17.9 % (20.5-51.1); MEAN CORPUSCULAR HEMOGLOBIN 33 pg (27-31); MEAN CORPUSCULAR HGB CONC 34 g/dL (33-37); MEAN CORPUSCULAR VOLUME 95.1 fL (80-94); MONOCYTES # (AUTO) 1.8 K/uL (0.8-1.0); MONOCYTES % (AUTO) 22.8 % (1.7-9.3); NEUTROPHILS # (AUTO) 4.7 K/uL (1.8-7.7); NEUTROPHILS % (AUTO) 58.4 % (42.2-75.2); PLATELET COUNT (AUTO) 157 K/uL (140-450); RED BLOOD CELL COUNT(AUTO) 3.42 MIL/uL (4.20-6.10); RED CELL DISTRIBUTION WIDTH 14.6 % (11.6-13.7)
[2023-05-27 08:29] LABS: ALANINE AMINOTRANSFERASE 14 U/L (12-78); ALBUMIN 2.1 g/dL (3.4-5.0); ALKALINE PHOSPHATASE 38 U/L (50-136); ANION GAP 10.6 (8-16); ASPARTATE AMINOTRANSFERASE 19 U/L (15-37); CALCIUM 8.1 mg/dL (8.5-10.1); CARBON DIOXIDE 25.5 mmol/L (21-32); CHLORIDE 108 mmol/L (98-107); CREATININE 1.2 mg/dL (0.6-1.3); GLUCOSE 100 mg/dL (74-106); MAGNESIUM 1.7 mg/dL (1.8-2.4); PHOSPHORUS 2.6 mg/dL (2.5-4.9); POTASSIUM 4.1 mmol/L (3.5-5.1); SODIUM SERUM 140 mmol/L (136-145); TOTAL BILIRUBIN 0.3 mg/dL (0.0-1.0); TOTAL PROTEIN, SERUM 6.6 g/dL (6.4-8.2); UREA NITROGEN, BLOOD 24 mg/dL (7-18)
[2023-05-27] MEDS: amLODIPine 5 MG TAB PO SCH (09:00)
[2023-05-27] MEDS: ASPIRIN 81 MG TAB.CHEW PO SCH (09:00)
[2023-05-27] MEDS: VANCOMYCIN 750 MG in DEXTROSE 5% 250 ML IV SCH (10:50)
[2023-05-27] MEDS: DIVALPROEX SPRINKLES 125 MG CAPDR PO SCH (16:44)
[2023-05-27] MEDS: MAG SULF 2000 MG/WATER PREMIX 50 ML IV PRN (16:45)
[2023-05-27] MEDS: risperiDONE 1 MG TAB PO SCH (22:38)
[2023-05-28] VITALS (8 sets, daily range): BP systolic 117–136; BP diastolic 62–83; PULSE 69–113; RESP 17–20; TEMP 97–98; O2SAT 93–99
[2023-05-28 07:31] LABS: BASOPHILS % (AUTO) 0.6 % (0.0-2.0); EOSINOPHILS % (AUTO) 0.6 % (0.0-4.0); HEMOGLOBIN 11.1 g/dL (12.0-18.0); LYMPHOCYTES # (AUTO) 1.6 K/uL (2.0-11.5); LYMPHOCYTES % (AUTO) 21.7 % (20.5-51.1); MEAN CORPUSCULAR HEMOGLOBIN 32 pg (27-31); MEAN CORPUSCULAR HGB CONC 35 g/dL (33-37); MEAN CORPUSCULAR VOLUME 92.1 fL (80-94); MONOCYTES # (AUTO) 1.5 K/uL (0.8-1.0); MONOCYTES % (AUTO) 21.2 % (1.7-9.3); NEUTROPHILS % (AUTO) 55.9 % (42.2-75.2); PLATELET COUNT (AUTO) 129 K/uL (140-450); RED BLOOD CELL COUNT(AUTO) 3.47 MIL/uL (4.20-6.10); RED CELL DISTRIBUTION WIDTH 14.3 % (11.6-13.7); WHITE BLOOD COUNT (AUTO) 7.2 K/uL (4.8-10.8)
[2023-05-28 08:18] LABS: ALANINE AMINOTRANSFERASE 15 U/L (12-78); ALBUMIN 2.1 g/dL (3.4-5.0); ALKALINE PHOSPHATASE 32 U/L (50-136); ANION GAP 11.8 (8-16); ASPARTATE AMINOTRANSFERASE 22 U/L (15-37); CALCIUM 8.4 mg/dL (8.5-10.1); CARBON DIOXIDE 26.2 mmol/L (21-32); CHLORIDE 104 mmol/L (98-107); CREATININE 1.1 mg/dL (0.6-1.3); GLUCOSE 100 mg/dL (74-106); PHOSPHORUS 2.4 mg/dL (2.5-4.9); SODIUM SERUM 138 mmol/L (136-145); TOTAL BILIRUBIN 0.3 mg/dL (0.0-1.0); TOTAL PROTEIN, SERUM 6.2 g/dL (6.4-8.2); UREA NITROGEN, BLOOD 17 mg/dL (7-18)
[2023-05-28] MEDS: FAMOTIDINE 20 MG TAB PO SCH (08:37)
[2023-05-29] VITALS (14 sets, daily range): BP systolic 136–150; BP diastolic 66–83; PULSE 66–101; RESP 18; TEMP 96.3–97.6; O2SAT 92–98
[2023-05-29] MEDS ORDERED: BENZ-315 PO (13:58)
[2023-05-29] MEDS ORDERED: DOXY-487 PO (13:58)
== END 2023-05-29 21:10 | DRG 70 ==
LOC: MED 11:27 → MTU 14:00
PROVIDERS: ADMIT Family Medicine; ATTEND Family Medicine
DX: G93.41 Metabolic encephalopathy (principal); E43 Unspecified severe protein-calorie malnutrition; N17.0 Acute kidney failure with tubular necrosis; R65.10 Systemic inflammatory response syndrome (SIRS) of non-infectious origin without acute organ dysfunction; Z20.822 Contact with and (suspected) exposure to COVID-19; G20.A1 Parkinson's disease without dyskinesia, without mention of fluctuations; G40.909 Epilepsy, unspecified, not intractable, without status epilepticus; J44.9 Chronic obstructive pulmonary disease, unspecified; E78.5 Hyperlipidemia, unspecified; I10 Essential (primary) hypertension; Z79.899 Other long term (current) drug therapy; Z79.82 Long term (current) use of aspirin; Z86.73 Personal history of transient ischemic attack (TIA), and cerebral infarction without residual deficits; Z28.21 Immunization not carried out because of patient refusal; Z68.29 Body mass index [BMI] 29.0-29.9, adult
CPT/HCPCS: 36415; 36600; 70450; 71045; 80048; 80053; 80076; 80202; 81003; 82803; 83605; 83735; 83880; 84100; 84484; 85025; 85610; 85730; 87040; 87081; 87086; 87420; 92526; 94640; 96361; 96365; 99285; J1644; J2543; J3370; J3372; J3475; J3490; J7060; J7613; J7644; Q0092

== ENCOUNTER 2023-07-15 17:18 | Emergency (ER) | payer OTHER ==
[~2023-07-15] VITALS: Ht 188 cm; Wt 104.3 kg
[~2023-07-15 17:18] MED LIST changes: +BENZ-315 PO; -BENZ1TAB24 PO; -DEXT15SY7 PO; +DOXY-487 PO
[2023-07-15 17:22] VITALS: BP 139/72; PULSE 88; RESP 18; TEMP 98.2; O2SAT 96
[2023-07-15 17:43] LABS: BASOPHILS % (AUTO) 0.4 % (0.0-2.0); EOSINOPHILS # (AUTO) 0.1 K/uL (0-0.4); EOSINOPHILS % (AUTO) 0.7 % (0.0-4.0); HEMATOCRIT 36.6 % (36-52); HEMOGLOBIN 12.6 g/dL (12.0-18.0); LYMPHOCYTES # (AUTO) 1.6 K/uL (2.0-11.5); LYMPHOCYTES % (AUTO) 17.5 % (20.5-51.1); MEAN CORPUSCULAR HEMOGLOBIN 32 pg (27-31); MEAN CORPUSCULAR HGB CONC 35 g/dL (33-37); MEAN CORPUSCULAR VOLUME 91.9 fL (80-94); MONOCYTES # (AUTO) 1.1 K/uL (0.8-1.0); MONOCYTES % (AUTO) 11.9 % (1.7-9.3); NEUTROPHILS # (AUTO) 6.4 K/uL (1.8-7.7); NEUTROPHILS % (AUTO) 69.5 % (42.2-75.2); PLATELET COUNT (AUTO) 211 K/uL (140-450); RED BLOOD CELL COUNT(AUTO) 3.98 MIL/uL (4.20-6.10); RED CELL DISTRIBUTION WIDTH 14.9 % (11.6-13.7); WHITE BLOOD COUNT (AUTO) 9.2 K/uL (4.8-10.8)
[2023-07-15 17:57] LABS: ANION GAP 12.3 (8-16); CALCIUM 8.8 mg/dL (8.5-10.1); CARBON DIOXIDE 27.1 mmol/L (21-32); CHLORIDE 103 mmol/L (98-107); CREATININE 1.2 mg/dL (0.6-1.3); GLUCOSE 114 mg/dL (74-106); POTASSIUM 4.4 mmol/L (3.5-5.1); SODIUM SERUM 138 mmol/L (136-145); UREA NITROGEN, BLOOD 23 mg/dL (7-18)
[2023-07-15 18:03] LABS: ALBUMIN 2.9 g/dL (3.4-5.0); BILIRUBIN,DIRECT 0.1 mg/dL (0.0-0.3); TOTAL BILIRUBIN 0.2 mg/dL (0.0-1.0)
[2023-07-15] MEDS ORDERED: MAGN296S48 PO (19:07)
[2023-07-15 21:25] VITALS: BP 132/67; PULSE 88; RESP 18; TEMP 98.2; O2SAT 96
== END 2023-07-15 21:25 ==
LOC: MED 17:18
DX: K59.00 Constipation, unspecified (principal); J44.9 Chronic obstructive pulmonary disease, unspecified; I10 Essential (primary) hypertension; Z86.69 Personal history of other diseases of the nervous system and sense organs; Z86.73 Personal history of transient ischemic attack (TIA), and cerebral infarction without residual deficits; Z79.899 Other long term (current) drug therapy; Z79.82 Long term (current) use of aspirin
CPT/HCPCS: 36415; 80048; 80076; 83690; 85025; 99284